=== PATIENT | male | born 1955 | race Caucasian/White ===

== ENCOUNTER 2020-05-21 12:26 | Inpatient (IN) | payer OTHER, SELFPAY ==
[2020-05-20 11:14] VITALS: BMI 28.1
[2020-05-21 12:27] VITALS: BP 165/98; PULSE 88; RESP 18; TEMP 36.2; O2SAT 99; BMI 29.7
--- NOTE | 2020-05-21 12:50 | EKG12_ITS ---
Test Reason : ABD PAIN Blood Pressure : / mmHG Vent. Rate : 061 BPM Atrial Rate : 061 BPM P-R Int : 172 ms QRS Dur : 080 ms QT Int : 376 ms P-R-T Axes : 032 -24 024 degrees QTc Int : 378 ms Normal sinus rhythm Inferior infarct , age undetermined Abnormal ECG Confirmed by JADIEL JOYCE, CHARITY ([id number]), online content editor ELIZA AUGUSTIN ([id number]) on 05/25/2020 2:37:03 PM Referred By: URIAH Confirmed By:EDIS DUVALL MD
[2020-05-21 12:53] LABS: Absolute Lymphocyte Count 1.69 X10^3/uL (0.83-4.51); Basophil# 0.04 X10^3/uL; Basophil% 0.5 % (0-1); Eosinophil# 0.13 X10^3/uL; Eosinophils% 1.8 % (0-5); Hematocrit 50.6 % (40-54); Hemoglobin 16.6 g/dL (13.0-16.5); Lymphocyte # 1.69 X10^3/ul (4.0); Lymphocyte % 22.9 % (19-41); Mean Corp Hgb Conc 32.8 g/dL (32-36); Mean Corpuscular Hgb 29.2 pg (27.0-32.0); Mean Corpuscular Volume 89.1 fL (80-94); Mean Platelet Vol. 9.9 fl (6.2-12.0); Monocyte# 0.53 X10^3/uL; Monocyte% 7.2 % (0-10); NRBC Flagged by Analyzer 0 % (0-5); Neutrophil # 4.95 X10^3/uL (2.7-7.7); Neutrophil % 67.2 % (47-70); Platelet Count 300 K/mm3 (150-450); RBC Distribution Width CV 12.9 % (11.6-14.6); RBC Distribution Width SD 42.1 fl (35.1-43.9); Red Blood Count 5.68 M/mm3 (4.6-6.2); White Blood Count 7.4 K/mm3 (4.4-11.0)
[2020-05-21 13:05] LABS: Anion Gap 7 (5-15); BUN 12 mg/dL (7-18); BUN/Creat Ratio 12.6 RATIO (10-20); Calcium,Total 9.2 mg/dL (8.5-10.1); Chloride 108 mmol/L (98-107); Creatinine, Serum 0.95 mg/dL (0.70-1.30); EST Glomerular Filtration Rate 85 mL/min (>60); Est Glom Filt Rate - Afr Amer 102 mL/min (>60); Estimated Creatinine Clearance 63.22 ml/min; Glucose 98 mg/dL (74-106); Potassium 4.1 mmol/L (3.5-5.1); Sodium Level 140 mmol/L (136-145)
[2020-05-21 13:35] LABS: AST(SGOT) 23 U/L (15-37); Alanine Aminotransfer ALT/SGPT 47 U/L (16-61); Albumin, Serum 3.9 g/dL (3.2-5.0); Alkaline Phosphatase 78 U/L (45-117); Globulin 3.7 g/dL (2.2-4.2); Protein, Total 7.6 g/dL (6.4-8.2)
[2020-05-21 13:41] LABS: Lipase 70 U/L (73-393)
[2020-05-21] MEDS: 0.9% Normal Saline 1,000 ML 1000 ML IV (14:53)
[2020-05-21] MEDS: Morphine 4 MG/ML Syringe IV (14:54)
[2020-05-21] MEDS: Ondansetron 4 MG/2 ML Vial IV (14:54)
--- NOTE | 2020-05-21 15:05 | CT_ITS ---
STUDY: CT ABDOMEN AND PELVIS WITH CONTRAST REASON FOR EXAM: Male, 65 years old. BELCHING X 1 WEEK WITH UPPER ABDOMINAL PAIN. NAUSEA RADIATION DOSAGE (If Supplied By Facility): CTDIvol = ( 14.76 ) mGy, DLP = ( 849.71 ) mGycm TECHNIQUE: Transaxial images were obtained from the dome of the diaphragm to the symphysis pubis without oral contrast. IV 100mL Isovue-300 was administered. Sagittal and coronal images were reconstructed. Individualized dose optimization techniques were used for this CT. COMPARISON: None. FINDINGS: Minimal degree of bibasilar atelectasis. The visualized portions of the heart are within normal limits. There is decreased attenuation of the liver consistent with steatosis. Normal gallbladder and extrahepatic biliary system. Normal spleen. Normal pancreas. Normal bilateral adrenal glands. Normal right kidney. Normal left kidney. There is a small hiatal hernia. There are dilated loops of the distal small intestine with a non-distended colon consistent with a small bowel obstruction. This is caused by inflammatory mass in the region of the cecum. The cecum is high riding with a retrocecal appendix. The appendix is distended. A small amount of fluid is seen in the right paracolic region. There are scattered colonic diverticula consistent with diverticulosis. The appendix is visualized and appears normal. Normal abdominal aorta. Normal inferior vena cava. Normal retroperitoneum. Normal urinary bladder. Normal abdominal wall. Normal osseous structures. CT/Abdomen/Pelvis W IV Cont ONLY IMPRESSION: Distal small bowel dilatation due to a inflammatory mass lesion in the region of the terminal ileum/cecum with the a dilated retroareolar cecal appendix. A mucocele should be ruled out. Electronically Signed: Ulises Reyes, at 15:45 EDT , Service support ,
--- NOTE | 2020-05-21 16:04 | ED.DCSUM_ITS ---
- ER Visit Summary Date of Service: 05/21/20 Chief Complaint: Abdominal pain History of Present Illness: The patient is a 65 M with no primary care physician. He reports his abdominal pain began 2 weeks ago. States initially just felt gassy and was belching all the time. States that he has had intermittent pain that he describes it as a spasm that is 9 out of 10 at worst and to a 10 currently. Is worsened by movement relieved by remaining still. He is been nausea and vomited once today. No blood in his emesis. No diarrhea. Last bowel was yesterday. It was dark after Pepto-Bismol. However, he denies any blood in his stools or black tarry diarrhea. Patient denies any fever or chills. He denies any dysuria or frequency. He reports he had endoscopy a long time ago. He had a colonoscopy approximately 10 years ago. Physical Examination: Vitals: Stable. Afebrile. General: Well-nourished and well-developed. Head: Normocephalic atraumatic. Neck: Supple, no lymphadenopathy. No JVD. Nontender. Cardiovascular: Regular rate and rhythm. No murmurs. Respiratory: No respiratory distress. Clear to auscultation bilaterally. Abdominal: Soft, moderate epigastric and right upper quadrant tenderness to palpation, nondistended, normal bowel sounds. No guarding, rebound, or peritoneal signs. Back: Nontender. Extremities: Nontender, no edema. Skin: Normal color, no rash. Neurologic: Alert and oriented ?3. Cranial nerves II through XII are intact. Normal strength and sensation. Psych: Normal affect. Test Results: CBC shows a hemoglobin of 16.6. Chem-7 shows a chloride of 108. LFTs are normal. Lipase 70. Troponin is negative. EKG is sinus at 61 with no acute changes. Clinical Impression(s) from Imaging Studies Abdomen/Pelvis CT 05/21/20 15:05 IMPRESSION: Distal small bowel dilatation due to a inflammatory mass lesion in the region of the terminal ileum/cecum with the a dilated retroareolar cecal appendix. A mucocele should be ruled out. Electronically Signed: Ulises Reyes, at 15:45 EDT , Service support , Emergency Department Course and Treatment: Patient was treated morphine and Zofran IV. He is resting comfortably. Treatment Plan: Patient was discussed with Dr. Shipman who is been to the emergency department reviewed the CT. 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 He will admit him to the hospital for further evaluation and treatment. Disposition: Admitted in improved condition. Impression: 1. Small bowel obstruction. 2. Cecal mass. This note was generated with [employer] dictation software. It may contain incorrect words, spelling, and punctuation that were not noted in review of the chart prior to signing ED Disposition - Plan for ED Patient: Referrals: Care Physician,No Primary [Primary Care Provider] -
[2020-05-21 16:36] VITALS: BMI 29.7
--- NOTE | 2020-05-21 16:58 | NURSING ---
MED SURG SHAMA DOUGLAS
[2020-05-21 17:09] VITALS: BP 145/79; PULSE 91; RESP 16; TEMP 36.7; O2SAT 99
--- NOTE | 2020-05-21 17:15 | PCM.HP.STD ---
Problem List (1) Colonic thickening Status: Acute History of Present Illness Date of Admission: 05/21/20 The patient is a 65 year old M who says that he has been having mounting abdominal pain for the last week. He says over the course of the week it is been escalating. He said he had a normal bowel movement yesterday. He did have some vomiting today. He denies any fevers or chills. He denies any diarrhea. Past Medical History Allergies Penicillins Allergy (Verified 05/21/20 12:30) unknown Home Medications: Ambulatory Orders Medication Instructions Recorded Famotidine 20 mg PO DAILY 05/21/20 Surgical History: no surgical history Smoking Status: Never smoker Tobacco Use: Chew - *Family History Maternal History Items: No pertinent history Review of Systems Constitutional: Denies: Anorexia, Fever Eyes: Denies: Blurred vision HEENT: Denies: Difficulty Hearing, Difficulty Swallowing Respiratory: Denies: Cough Gastrointestinal: Reports: Abdominal Pain, Nausea, Vomiting. Denies: Constipation, Diarrhea, Hematemesis, Hematochezia Genitourinary: Denies: Retention Musculoskeletal: Denies: Joint stiffness Neurological: Denies: Tingling Hematologic/ Lymphatic: Denies: Anemia VTE Information - Inpt Only VTE Present on Admission: No VTE Mechan Device Prophylaxis: SCD's Patient Problems: Active and Suspected Problems (Last Reviewed 05/20/20 @ 11:15 by Jayda Jo) Colonic thickening (Acute) - Physical Exam Vitals/I&O's: Vital Signs Temp Pulse Resp BP Pulse Ox 98.1 F 91 16 145/79 H 99 05/21/20 17:09 05/21/20 17:09 05/21/20 17:09 05/21/20 17:09 05/21/20 17:09 Oxygen Delivery Method Room Air Weight: 167 lb 8.821 oz Body Mass Index (BMI) 29.7 General: Alert, Oriented x3 Neck: No JVD Lungs: Normal air movement Cardiovascular: Regular rate, Regular Rhythm Abdomen: Soft, Non-Distended, Tender - Tender diffusely, worse in the right upper quadrant. No guarding or rebound Musculoskeletal: No Muscle Wasting Neurological: Cranial nerves II-XII grossly intact Psych/Mental Status: Normal Affect Laboratory Results 05/21/20 12:40: WBC 7.4, RBC 5.68, Hgb 16.6 H, Hct 50.6, MCV 89.1, MCH 29.2, MCHC 32.8, RDW Std Deviation 42.1, RDW Coeff of Gregory 12.9, Plt Count 300, MPV 9.9, Immature Gran % (Auto) 0.400, Neut % (Auto) 67.2, Lymph % (Auto) 22.9, [place] % (Auto) 7.2, Eos % (Auto) 1.8, Baso % (Auto) 0.5, Absolute Neuts (auto) 5.0, Absolute Lymphs (auto) 1.69, Nucleated RBC % 0 05/21/20 12:40: Sodium 140, Potassium 4.1, Chloride 108 H, Carbon Dioxide 25.0, Anion Gap 7, BUN 12, Creatinine 0.95, Estim Creat Clear Calc 63.22, Est GFR (MDRD) Af Amer 102, Est GFR (MDRD) Non-Af 85, BUN/Creatinine Ratio 12.6, Glucose 98, Calcium 9.2 05/21/20 12:40: Total Bilirubin 0.80, Direct Bilirubin 0.20, AST 23, ALT 47, Alkaline Phosphatase 78, Total Protein 7.6, Albumin 3.9, Globulin 3.7 05/21/20 12:40: Troponin I < 0.015, Lipase 70 L Current Medications Lidocaine HCl (Xylocaine 4% Sdv) 2 ml INHALATION X1 ONE Stop: 05/21/20 17:05 Oxymetazoline HCl (Afrin (Bkc)) 2 spray NASAL X1 ONE Stop: 05/21/20 17:05 Sodium Chloride () 10 - 40 ml IV UD PRN PRN Reason: SALINE FLUSH Assessment/Plan All Active Problems (Last Reviewed 05/20/20 @ 11:15 by Jayda Jo) Colonic thickening (Acute) Ventral hernia (Acute) Belching (Acute) 65-year-old male with possible cecal bascule 1. The patient describes pain that has been worsening over the course of the last week. He describes some nausea vomiting today. His pain has slowly been accelerating. I reviewed his CT scan findings with him. His white count is completely normal with no left shift and he is not having any guarding or rebound. The CT upon my review appears that the cecum is folded behind the hepatic flexure. The appendix appears to be lying in between the hepatic flexure and the cecum. The patient has never had any surgeries in the past. He denies any other issues and his last colonoscopy was approximately 10 years ago. He has not had any blood in his stool. At this point I do not believe he has a surgical emergency as his abdomen is soft but tender with no guarding and his white count is normal his vital signs are all stable. I will plan on surgical exploration with laparoscopy tomorrow morning. I will start him on IV fluids and keep him n.p.o. through the night. If anything worsens through the night including his vital signs or physical exam I will take him to surgery emergently. 2. I discussed surgery with the patient in detail. I discussed performing exploratory laparoscopy and examining the colon and appendix and if necessary performing a right hemicolectomy. I discussed the risks including but not limited to bleeding, infection, injury to surrounding organs such as the small bowel, liver, kidney or ureters, transverse colon. The patient understands the risks and is willing to proceed. I will have an NG tube placed in the emergency room to decompress the small bowel as much as possible and make laparoscopy easier tomorrow morning. Mohinder Shipman MD Pager: [facility] [address] [place] [address], [address] [place] [address] Office:
[2020-05-21 17:24] VITALS: BMI 29.2
[2020-05-21 17:30] VITALS: BP 147/97; PULSE 58; RESP 16; TEMP 36.9; O2SAT 99
[2020-05-21] MEDS: 0.9% Normal Saline 1,000 ML 125 ML IV (17:50)
[2020-05-21] MEDS: Morphine 2 MG/ML Syringe IV (17:52)
[2020-05-21] MEDS: Lidocaine Jelly 2% 20 ML Syringe (URO-JET) 20 APPLIC TOPICAL (19:02)
--- NOTE | 2020-05-21 19:18 | RAD_ITS ---
STUDY: X-RAY - ABDOMEN/PELVIS REASON FOR EXAM: Male, 65 years old. NG tube placement. TECHNIQUE: A single AP view of the lower chest and upper abdomen was performed. COMPARISON: CT of the abdomen and pelvis, 05/21/2020. FINDINGS: Normal visualized lung bases. There is no NG tube with its tip in the proximal stomach. There is an unremarkable bowel gas pattern. There is no free air. There is no demonstrated free abdominal air. The visualized liver, spleen and kidneys are grossly normal in size and morphology. Normal soft tissue structures. Normal visualized osseous structures. RAD/Abdomen Single View (Portable) IMPRESSION: NG tube with its tip overlying the gastric air bubble. Electronically Signed: Shan Villegas DO at 20:13 EDT Tel [phone], Service support ,
[2020-05-21 20:07] VITALS: BP 139/83; PULSE 75; RESP 16; TEMP 37.2; O2SAT 94
[2020-05-21 23:45] VITALS: BP 140/86; PULSE 68; RESP 18; TEMP 36.7; O2SAT 96
[2020-05-22] VITALS (12 sets, daily range): BP systolic 133–167; BP diastolic 85–97; PULSE 62–94; RESP 16–18; TEMP 36.3–37.4; O2SAT 93–97; BMI 29.2; BMI 29.7
--- NOTE | 2020-05-22 | COL._PTH ---
PATIENT: ATUL ALBERT LOC: MS3 U#:[id number] AGE/SX: 65/M ROOM: MS308 RE05/21/[address]: Dr. 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 See cancer checklist. AM:jayy 05/26/20 COMMENT COLON CANCER SUMMARY Procedure: Right hemicolectomy Tumor site: Cecum Tumor size: 3 x 3 x 1 cm Macroscopic tumor perforation: Not identified Histologic type: Adenocarcinoma with neuroendocrine features Histologic grade: G3 (moderate to poorly differentiated) Tumor extension: Tumor invades into subserosal fat. Margins: All margins are uninvolved by invasive carcinoma, high grade dysplasia/carcinoma in situ and adenoma. Margins examined: Proximal, distal and serosal. No tumor deposits are noted <1 mm from the visceral serosal surface. Treatment effect: Unknown Lymphvascular invasion: Present Perineural invasion: Present Tumor deposits: Single tumor deposit identified (5 mm in greatest dimension). Associated lesion: Tubular adenoma. Regional lymph nodes: 9 of 20 lymph nodes positive for metastatic carcinoma. Ancillary studies: See microsatellite instability study by IHC ([id number]) for complete details. Negative (no loss of mismatch protein; no microsatellite instability detected). Additional pathologic findings: None PATHOLOGIC STAGE: T3 N2b Mx The above summary is in compliance with [employer] (CAP) Cancer Protocols Checklist and [place] Joint Committee on Cancer (AJCC), Staging Manual, 8th Ed. Note: The adenocarcinoma involves portions of the ileocecal valve and proximal portion of the appendiceal lumen. MICROSCOPIC DESCRIPTION Slides are reviewed. GROSS DESCRIPTION Received in fixative is one container labeled with the patient's name and designated right hemicolon. The specimen consists of a 20 cm segment of large bowel with attached 17 cm segment of small bowel and attached 7 cm length of appendix that has a diameter of 0.7 cm. Located within the cecum and surrounding the orifice of the appendix, is a fungating odonnell-white mass measuring 3 x 3 x 1 cm. Serial sections of the mass reveal extension into the subserosal fatty tissue. The serosal surface in the area of the mass is inked in black ink. The attached fibrofatty tissue contains a number of grossly unremarkable nodules resembling lymph nodes. The remainder of large and small bowel mucosa is unremarkable. Industrial Ecologist sections are submitted as follows: 1 - mucosal margins of excision, 2 - ileocecal valve, 3?- appendix, 4 - uninvolved large and small bowel, 5-8 - tumor with #8 representing tumor in relationship to appendiceal orifice, 9-12 - multiple lymph nodes in each cassette. / AM:jayy 05/25/20 TC:0 CPT: 75069 ADDENDUM ADDENDUM ADDENDUM ADDENDUM ADDENDUM ADDENDUM ADDENDUM ADDENDUM ADDENDUM ADDENDUM ADDENDUM ADDENDUM 06/16/2020 11:51 ADDENDUM 06/16/2020 11:51 ADDENDUM 06/16/2020 11:51 ADDENDUM 06/16/2020 11:51 ADDENDUM 06/16/2020 11:51 This addendum is added to incorporate an outside pathology consultation report. The case was examined at [facility] (#[id number]) and the following diagnosis was rendered. Right colon, hemicolectomy: - Moderate to poorly differentiated adenocarcinoma, arising in cecum and extending into pericolorectal tissue. - Metastatic adenocarcinoma in eight lymph nodes (04/09). Please see complete above mentioned consultation report in EMR
--- NOTE | 2020-05-22 | IMM_PTH ---
PATIENT: ATUL ALBERT LOC: MS3 U#:[id number] AGE/SX: 65/M ROOM: MS308 RE05/21/[address]: Dr. Mohinder Shipman MD : 1955 BED: 1 DIS: 05/28/2020 SPEC #: [id number] RECD: 05/26/20 14:00 STATUS: MAEVE REQ #: [id number] GLORIA: 05/22/20 00:[address]: Mohinder Shipman DEPT: IMMUNOHISTOCHEMISTRY RECD BY: Mariah Rocha ENTERED: 05/26/20 14:02 SP TYPE: IMMUNO OTHR DR: Dr. Josef Cleary MD No Primary Care Phys Tissues: Right colon Procedures: Synapto (add) MSH2 (add) MLH-1 (add) MSH6 (add) Anti-PMS2 (add) GRANT-2 (initial) CD31 (add) CD56 (add) CHROMO (add) KI-67 (add) P53 (add) FACTOR VIII (add) CDX2 (add) NSE (add) PHYSICIAN & [place] [phone] SPECIMEN INFORMATION: Tissue Source: Right hemicolon Clinical Info: Cecal mass Specimen Number: [id number] #[id number] CPT code: 73227, 54291 x13 METHODOLOGY: Deparaffinized sections of prefer/formalin-fixed tissue or PAP/DQ stained slides are incubated with monoclonal/polyclonal antibodies/oligonucleotide probes. Localization is made via biotin free immunoperoxidase method. Appropriate controls are performed and reacted as expected. Results on target cell population are indicated in the following table: RESULTS: ANTIBODY / CLONE RESULT Block 7 CD31 (CALEB/70A) positive Factor VIII (R Ag) positive CD56 (123C3.D5) positive Chromo (LK2H10) negative Synapto (polyclonal) positive NSE Neuron Specific Enolase positive Ki-67 (30-9) positive, 85% P53 (DO-7) positive, 2% dim GRANT-2 (SP21) positive CDX2 (ALK5047X) positive MLH-1 (M1) positive MSH2 (25D12) positive MSH6 (44) positive PMS2 (KHQ4457) positive These tests were developed and their performance characteristics determined by [facility]. They may not have been cleared or approved by the U.S. Food and Drug Administration. The FDA has determined that such clearance or approval is not necessary. The above immunohistochemical/dualISH markers are ordered and reviewed by the Pathologist. 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 Result of Microsatellite Instability Study: Negative (no loss of mismatch protein; no microsatellite instability detected). See comment. AM:jayy 05/27/20 AM:jayy 06/04/20 Comment: Angiolymphatic invasion noted.
--- NOTE | 2020-05-22 | IMM_PTH ---
PATIENT: ATUL ALBERT LOC: MS3 U#:[id number] AGE/SX: 65/M ROOM: MS308 RE05/21/[address]: Dr. Mohinder Shipman MD : 1955 BED: 1 DIS: 05/28/2020 SPEC #: [id number] RECD: 05/26/20 14:00 STATUS: MAEVE REQ #: [id number] GLORIA: 05/22/20 00:[address]: Mohinder Shipman DEPT: IMMUNOHISTOCHEMISTRY RECD BY: Mariah Rocha ENTERED: 05/26/20 14:02 SP TYPE: IMMUNO OTHR DR: Dr. Josef Cleary MD No Primary Care Phys Tissues: Right colon Procedures: Synapto (add) MSH2 (add) MLH-1 (add) MSH6 (add) Anti-PMS2 (add) GRANT-2 (initial) CD31 (add) CD56 (add) CHROMO (add) KI-67 (add) P53 (add) FACTOR VIII (add) CDX2 (add) NSE (add) PHYSICIAN & [place] [phone] SPECIMEN INFORMATION: Tissue Source: Right hemicolon Clinical Info: Cecal mass Specimen Number: [id number] #[id number] CPT code: 03026, 58594 x13 METHODOLOGY: Deparaffinized sections of prefer/formalin-fixed tissue or PAP/DQ stained slides are incubated with monoclonal/polyclonal antibodies/oligonucleotide probes. Localization is made via biotin free immunoperoxidase method. Appropriate controls are performed and reacted as expected. Results on target cell population are indicated in the following table: RESULTS: ANTIBODY / CLONE RESULT Block 7 CD31 (CALEB/70A) positive Factor VIII (R Ag) positive CD56 (123C3.D5) positive Chromo (LK2H10) negative Synapto (polyclonal) positive NSE Neuron Specific Enolase positive Ki-67 (30-9) positive, 85% P53 (DO-7) positive, 2% dim GRANT-2 (SP21) positive CDX2 ([id number]) positive MLH-1 (M1) positive MSH2 (25D12) positive MSH6 (44) positive PMS2 (XFX1105) positive These tests were developed and their performance characteristics determined by [facility]. They may not have been cleared or approved by the U.S. Food and Drug Administration. The FDA has determined that such clearance or approval is not necessary. The above immunohistochemical/dualISH markers are ordered and reviewed by the Pathologist. 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 Result of Microsatellite Instability Study: Negative (no loss of mismatch protein; no microsatellite instability detected). AM:jayy 05/27/20
[2020-05-22] MEDS: Morphine 2 MG/ML Syringe IV ×4 (00:35→19:18)
[2020-05-22] MEDS: 0.9% Normal Saline 1,000 ML 125 ML IV ×3 (00:36→19:18)
[2020-05-22 06:07] LABS: Absolute Lymphocyte Count 1.31 X10^3/uL (0.83-4.51); Absolute Neutrophil Count 3.7 X10^3/uL (2.0-7.7); Basophil# 0.02 X10^3/uL; Basophil% 0.4 % (0-1); Eosinophil# 0.08 X10^3/uL; Eosinophils% 1.4 % (0-5); Hematocrit 46.2 % (40-54); Hemoglobin 14.6 g/dL (13.0-16.5); Lymphocyte # 1.31 X10^3/ul (4.0); Lymphocyte % 23.1 % (19-41); Mean Corp Hgb Conc 31.6 g/dL (32-36); Mean Corpuscular Volume 91.8 fL (80-94); Mean Platelet Vol. 9.9 fl (6.2-12.0); Monocyte# 0.51 X10^3/uL; NRBC Flagged by Analyzer 0 % (0-5); Neutrophil # 3.74 X10^3/uL (2.7-7.7); Neutrophil % 65.7 % (47-70); Platelet Count 259 K/mm3 (150-450); RBC Distribution Width CV 13.1 % (11.6-14.6); RBC Distribution Width SD 44.2 fl (35.1-43.9); Red Blood Count 5.03 M/mm3 (4.6-6.2); White Blood Count 5.7 K/mm3 (4.4-11.0)
[2020-05-22 06:41] LABS: Anion Gap 6 (5-15); BUN 12 mg/dL (7-18); BUN/Creat Ratio 15.2 RATIO (10-20); Chloride 113 mmol/L (98-107); Creatinine, Serum 0.79 mg/dL (0.70-1.30); EST Glomerular Filtration Rate 105 mL/min (>60); Est Glom Filt Rate - Afr Amer 127 mL/min (>60); Estimated Creatinine Clearance 76.03 ml/min; Glucose 91 mg/dL (74-106); Potassium 3.8 mmol/L (3.5-5.1); Sodium Level 142 mmol/L (136-145)
--- NOTE | 2020-05-22 07:41 | PN.SURG_ITS ---
Patient Problems: Active and Suspected Problems (Last Reviewed 05/20/20 @ 11:15 by Jayda Jo) Colonic thickening (Acute) Subjective: Patient reported in some improvement after the NG was placed. He is still having some mild pain in the right upper quadrant. - Physical Exam Vitals/I&O's: Vital Signs Temp Pulse Resp BP Pulse Ox 98.1 F 62 18 140/85 H 96 05/22/20 07:34 05/22/20 07:34 05/22/20 07:34 05/22/20 07:34 05/22/20 07:34 Oxygen Delivery Method Room Air Weight: 165 lb 1.6 oz Body Mass Index (BMI) 29.2 Intake and Output for Last 24 Hours 05/20/20 05/21/20 05/22/20 23:59 23:59 23:59 Intake Total 1120 / 1120 905.83 / 905.83 Output Total 225 / 225 450 / 450 Balance 895 / 895 455.83 / 455.83 General: Alert, Oriented x3 Lungs: Normal air movement Cardiovascular: Regular rate, Regular Rhythm Abdomen: Soft, Non-Distended, Tender - Tender in right upper quadrant no guarding or rebound Laboratory Results 05/21/20 12:40: WBC 7.4, RBC 5.68, Hgb 16.6 H, Hct 50.6, MCV 89.1, MCH 29.2, MCHC 32.8, RDW Std Deviation 42.1, RDW Coeff of Gregory 12.9, Plt Count 300, MPV 9.9, Immature Gran % (Auto) 0.400, Neut % (Auto) 67.2, Lymph % (Auto) 22.9, [place] % (Auto) 7.2, Eos % (Auto) 1.8, Baso % (Auto) 0.5, Absolute Neuts (auto) 5.0, Absolute Lymphs (auto) 1.69, Nucleated RBC % 0 05/21/20 12:40: Sodium 140, Potassium 4.1, Chloride 108 H, Carbon Dioxide 25.0, Anion Gap 7, BUN 12, Creatinine 0.95, Estim Creat Clear Calc 63.22, Est GFR (MDRD) Af Amer 102, Est GFR (MDRD) Non-Af 85, BUN/Creatinine Ratio 12.6, Glucose 98, Calcium 9.2 05/21/20 12:40: Total Bilirubin 0.80, Direct Bilirubin 0.20, AST 23, ALT 47, Alkaline Phosphatase 78, Total Protein 7.6, Albumin 3.9, Globulin 3.7 05/21/20 12:40: Troponin I < 0.015, Lipase 70 L 05/22/20 05:45: WBC 5.7, RBC 5.03, Hgb 14.6, Hct 46.2, MCV 91.8, MCH 29.0, MCHC 31.6 L, RDW Std Deviation 44.2 H, RDW Coeff of Gregory 13.1, Plt Count 259, MPV 9.9, Immature Gran % (Auto) 0.400, Neut % (Auto) 65.7, Lymph % (Auto) 23.1, [place] % (Auto) 9.0, Eos % (Auto) 1.4, Baso % (Auto) 0.4, Absolute Neuts (auto) 3.7, Absolute Lymphs (auto) 1.31, Nucleated RBC % 0 05/22/20 05:45: Sodium 142, Potassium 3.8, Chloride 113 H, Carbon Dioxide 23.0, Anion Gap 6, BUN 12, Creatinine 0.79, Estim Creat Clear Calc 76.03, Est GFR (MDRD) Af Amer 127, Est GFR (MDRD) Non-Af 105, BUN/Creatinine Ratio 15.2, Glucose 91, Calcium 8.0 L Current Medications Sodium Chloride () 1,000 mls @ 125 mls/hr IV .Q8H ROSELIA Last Admin: 05/22/20 00:36 Dose: 125 mls/hr Documented by: Clindamycin Phosphate 900 mg/ (Dextrose) 106 mls @ 150 mls/hr IV PREOP ONE Stop: 05/22/20 07:42 Morphine Sulfate () 2 - 4 mg IV Q2H PRN PRN PRN Reason: Pain Score 4-10/10 Last Admin: 05/22/20 00:35 Dose: 2 mg Documented by: Morphine Sulfate () 2 - 4 mg IV Q2H PRN PRN PRN Reason: Pain Score 4-10/10 Ondansetron HCl (Zofran) 4 mg IV Q6H PRN PRN PRN Reason: NAUSEA Sodium Chloride () 10 - 40 ml IV UD PRN PRN Reason: SALINE FLUSH Medical Necessity - Tobacco Use Smoking Status: Never smoker Tobacco Use: Chew Assessment/Plan All Active Problems (Last Reviewed 05/20/20 @ 11:15 by Jayda Jo) Colonic thickening (Acute) Ventral hernia (Acute) Belching (Acute) 65-year-old male with possible cecal bascule 1. I discussed surgery with him once more today. Given the fact that his white count is still normal I believe he is not having ischemic bowel but I do believe once we start to feed him he may have nausea and vomiting and continue to be obstructed. I recommend exploratory laparoscopy. If there is any inflammation or signs of necrosis or signs of a floppy cecum I would recommend ileocecectomy versus right hemicolectomy. I discussed this with him in detail. Mohinder Shipman MD Pager: [facility] [address] [place] [address], [address] [place] [address] Office:
--- NOTE | 2020-05-22 09:50 | NURSING ---
LATE ENTRY - PT TO OR VIA [facility] @ [phone]
[2020-05-22] MEDS: Lactated Ringers 1,000 ML 100 ML IV (12:11)
--- NOTE | 2020-05-22 13:03 | SUR.PHASEI ---
pt ready for transport to [facility] finished in PACU, when transport here for pt he reached up and pulled NG tube from nose. Dr mazariegos at bedside.
--- NOTE | 2020-05-22 13:25 | PCM.PN.BLA ---
Progress Note EGD was performed at the bedside. There was 750 cc of dark blood in the stomach upon entry of the stomach. The patient had a bleeding prepyloric ulcer. Injection of epinephrine around the site did not stop the bleeding. Placement of clips was technically very difficult due to the amount of bleeding. At the end of the procedure there was still bright red blood oozing from the ulcer. OG was replaced in the stomach. At this point I was unable to stop the bleed adequately. The patient will likely need transfer to a tertiary care center for IR intervention for hemostasis. I discussed this with the patient's . Mohinder Shipman MD Pager: [facility] [address] [place] [address], [address] [place] [address] Office: [facility] Vital Signs/Narrative: Vital Signs Temp Pulse Resp BP Pulse Ox 05/22/20 12:40 99.3 F H 75 18 149/88 H 96 05/22/20 12:30 74 18 141/86 H 94 05/22/20 12:15 73 18 167/97 H 93 05/22/20 12:01 72 16 157/88 H 93 05/22/20 11:37 97.4 F L 79 16 157/87 H 93
[2020-05-22] MEDS: 0.9% Saline Lock 10 ML Syringe IV ×3 (13:32→19:18)
--- NOTE | 2020-05-22 13:55 | CASEMGMT ---
RN CM Face to Face with patient for initial transition planning/care coordination assessment. RN CM introduced self and role at [facility]. Patient lying in bed, sleeping, at bedside. willing to participate in assessment and is able to answer all questions appropriately. Care providers, pharmacy, and demographics verified. wishes for patient to discharge home, denies need for home health at this time. states she has no further needs or concerns at this time. CM to follow for discharge planning needs that may arise. PCP: No PCP, List of local PCPs provided to . Specialists: none Preferred [facility]acy: [facility] Insurance: MMO Prescription Benefit: yes Living Will/HPOA: yes, Sarah Combs LNOK: Living Arrangements: Patient lives in a single story with 3 steps to enter the home. Patient is independent at home prior to hospitalization. Transportation: self, DME/HHC: states patient has no DME at home or previous HHC. Disposition Plan: Patient to discharge home with family support and follow-up plans in place. Palma EASTMAN, RN, CM
--- NOTE | 2020-05-22 15:46 | PCM.OPRPT ---
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 A Ma catheter was placed. The abdomen was prepped and draped in usual sterile fashion. A midline incision was made superior to the umbilicus and deepened to the fascia. The fascia was elevated and incised. Port was placed into the abdomen and it was insufflated 15 mmHg. Under direct visualization an epigastric 5 mm port and 5 mm right lower quadrant port were placed. The patient was placed in reverse Trendelenburg position. The right upper quadrant was inspected and there appeared to be a mass at the junction of the appendix and the cecum. There is also a twist of the cecum caused by a band. This is likely congenital. The hepatic flexure was taken down using Enseal and then the procedure was converted to open. A scalpel was used to make a midline incision containing both previous midline incisions. This was deepened to the fascia and the fascia was incised using electrocautery. The wound protector was placed into the abdomen. Using combination of blunt and Enseal dissection the lateral attachments to the hepatic flexure and the transverse colon were taken down. The cecum and transverse colon and terminal ileum were delivered through the incision. The terminal limb was divided with a 75 PRADIP stapler. The transverse colon was inspected and just proximal to the middle colic vessel an area of the transverse colon was selected and divided using the PRADIP stapler. Next the Enseal was used to take down the mesentery until the right colon pedicle was identified. The right colon pedicle was double suture-ligated using 0 silk suture. There was good hemostasis. The specimen was sent for pathology. Next the distal ileum as well as the transverse colon were stapled together using PRADIP stapler in a [id number] functional end-to-end fashion. A crotch suture was placed using 3-0 silk suture. Next Babcocks were used to close the enterostomy and a 60 GX stapler was placed and fired to close the enterostomy. This was reinforced using 3-0 silk suture. The mesenteric defect was closed in a running fashion using 3-0 Vicryl suture. The abdomen was irrigated and suctioned dry. The fascia was then reapproximated using a running #1 PDS suture from top to bottom meeting in the middle. The subcutaneous tissue was irrigated and suctioned dry. The skin was anesthetized and closed with interrupted 4-0 Monocryl sutures. Neck Steri-Strips and bandages were applied. Patient tolerated procedure well was brought back in stable condition. - Admit VTE Documentation VTE Mechan Device Prophylaxis: SCD's
[2020-05-22] MEDS: Morphine 4 MG/ML Syringe IV (21:39)
[2020-05-23] VITALS (8 sets, daily range): BP systolic 117–154; BP diastolic 68–89; PULSE 63–110; RESP 17–24; TEMP 36.3–37.3; O2SAT 93–98; BMI 29.7
[2020-05-23] MEDS: 0.9% Normal Saline 1,000 ML 125 ML IV (02:46)
[2020-05-23] MEDS: Morphine 4 MG/ML Syringe IV (04:12)
--- NOTE | 2020-05-23 06:22 | PN.SURG_ITS ---
Patient Problems: Active and Suspected Problems (Last Reviewed 05/20/20 @ 11:15 by Jayda Jo) Colonic thickening (Acute) Subjective: Patient notes upper abdominal soreness. He had some mild nausea last night. He has not had any flatus. He has been able to ambulate once. - Physical Exam Vitals/I&O's: Vital Signs Temp Pulse Resp BP Pulse Ox 98.2 F 89 24 H 154/89 H 93 05/23/20 03:57 05/23/20 03:57 05/23/20 03:57 05/23/20 03:57 05/23/20 03:57 Oxygen Flow Rate (L/min) 2 Oxygen Delivery Method Room Air Weight: 165 lb 1.6 oz Body Mass Index (BMI) 29.2 Intake and Output for Last 24 Hours 05/21/20 05/22/20 05/23/20 23:59 23:59 23:59 Intake Total 1120 / 1120 4115.58 / 4115.58 933.33 / 933.33 Output Total 225 / 225 650 / 650 275 / 275 Balance 895 / 895 3465.58 / 3465.58 658.33 / 658.33 General: Alert Lungs: Clear to auscultation, - - Mild splinting noted with effort at deep respiration Abdomen: Soft, Bowel Sounds Not Present, Distended, - - Dressings intact Laboratory Results 05/22/20 05:45: Sodium 142, Potassium 3.8, Chloride 113 H, Carbon Dioxide 23.0, Anion Gap 6, BUN 12, Creatinine 0.79, Estim Creat Clear Calc 76.03, Est GFR (MDRD) Af Amer 127, Est GFR (MDRD) Non-Af 105, BUN/Creatinine Ratio 15.2, Glucose 91, Calcium 8.0 L Current Medications Enoxaparin Sodium (Lovenox) 40 mg SC DAILY [facility] Sodium Chloride () 1,000 mls @ 125 mls/hr IV .Q8H [facility] Last Admin: 05/23/20 02:46 Dose: 125 mls/hr Documented by: Morphine Sulfate () 2 - 4 mg IV Q2H PRN PRN PRN Reason: Pain Score 4-10/10 Last Admin: 05/22/20 19:18 Dose: 2 mg Documented by: Morphine Sulfate () 2 - 4 mg IV Q2H PRN PRN PRN Reason: Pain Score 4-10/10 Last Admin: 05/23/20 04:12 Dose: 4 mg Documented by: Ondansetron HCl (Zofran) 4 mg IV Q6H PRN PRN PRN Reason: NAUSEA Sodium Chloride () 10 - 40 ml IV UD PRN PRN Reason: SALINE FLUSH Last Admin: 05/22/20 19:18 Dose: 10 ml Documented by: Medical Necessity - Tobacco Use Smoking Status: Never smoker Tobacco Use: Chew Assessment/Plan All Active Problems (Last Reviewed 05/20/20 @ 11:15 by Jayda Jo) Colonic thickening (Acute) Ventral hernia (Acute) Belching (Acute) Postoperative day 1. He has had some mild nausea and has not yet had flatus. He is reasonably quiet and slightly distended. I will keep him on sips and chips for the moment and I have encouraged ambulation. I will moderate IV fluids. I will recheck with the patient see if we can start clear liquids later today. Josef Cleary M.D., F.A.C.S.
[2020-05-23 07:24] LABS: Absolute Lymphocyte Count 0.85 X10^3/uL (0.83-4.51); Absolute Neutrophil Count 7.8 X10^3/uL (2.0-7.7); Basophil# 0.02 X10^3/uL; Basophil% 0.2 % (0-1); Eosinophil# 0.13 X10^3/uL; Eosinophils% 1.4 % (0-5); Hematocrit 45.1 % (40-54); Hemoglobin 14.7 g/dL (13.0-16.5); Lymphocyte # 0.85 X10^3/ul (4.0); Mean Corp Hgb Conc 32.6 g/dL (32-36); Mean Corpuscular Hgb 29.6 pg (27.0-32.0); Mean Corpuscular Volume 90.7 fL (80-94); Mean Platelet Vol. 9.9 fl (6.2-12.0); Monocyte# 0.62 X10^3/uL; Monocyte% 6.6 % (0-10); NRBC Flagged by Analyzer 0 % (0-5); Neutrophil # 7.77 X10^3/uL (2.7-7.7); Neutrophil % 82.6 % (47-70); POSITIVE MORPHOLOGY YES; Platelet Count 230 K/mm3 (150-450); RBC Distribution Width SD 43.5 fl (35.1-43.9); Red Blood Count 4.97 M/mm3 (4.6-6.2); White Blood Count 9.4 K/mm3 (4.4-11.0)
[2020-05-23 07:29] LABS: Differential Indicated SCAN CRITERIA MET
[2020-05-23] MEDS: Enoxaparin 40 MG/0.4 ML Syringe SC (08:30)
[2020-05-23] MEDS: oxyCODONE 5 MG Tablet PO (09:43)
[2020-05-23] MEDS: 0.9% Normal Saline 1,000 ML 70 ML IV (12:00)
[2020-05-23] MEDS: Morphine 2 MG/ML Syringe IV ×2 (12:00→20:51)
--- NOTE | 2020-05-23 21:28 | CON.PCM_ITS ---
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 Nurse reported that on routine check patient's apical pulse was irregular so patient was placed on telemetry. He was noted to have trigeminy. His heart rate was 110. Patient denies any other symptoms except a complaint of abdominal pressure; and feeling hot earlier on from high room temperature. He has not had a bowel movement or passed gas post surgery. However he has been burping. He denies any urinary symptoms. He denies any palpitations. He denies any history of irregular rhythm. Patient chews tobacco and he think that he may be withdrawing from tobacco. Past Medical History Medical History: Medical History (Last Updated 05/23/20 @ 22:[address] Jon Fields MD) Denies previous medical history (Acute) Allergies Penicillins Allergy (Verified 05/21/20 12:30) unknown Home Medications: Ambulatory Orders Medication Instructions Recorded Famotidine 20 mg PO DAILY 05/21/20 Surgical History: - - Right hemicolectomy Smoking Status: Current every day smoker Tobacco Use: Chew Alcohol: Occasional - *Family History Maternal History Items: Dementia, - - GERD Paternal History Items: Dementia Review of Systems Constitutional: Denies: Chills, Fever, Weight Change HEENT: Denies: Head Aches, Sinus Congestion, Sinus Drainage Cardiovascular: Denies: Chest Pain, Palpitations Respiratory: Denies: Cough, Shortness of breath at rest, Sputum production Gastrointestinal: Reports: Abdominal Pain. Denies: Nausea, Vomiting Genitourinary: Denies: Dysuria Musculoskeletal: Denies: Joint Pain, Joint Tenderness Skin: Denies: Rash, Wounds Neurological: Denies: Numbness, Tingling, Focal weakness Psychiatric: Denies: Anxiety, Depression, Homicidal Ideations, Suicidal Ideations Hematologic/ Lymphatic: Denies: Easy Bruising, Easy Bleeding Patient Problems: Active and Suspected Problems (Last Updated 05/23/20 @ 22:[address] Jon Fields MD) Colonic thickening (Acute) PVC (premature ventricular contraction) (Acute) Tachycardia (Acute) Low grade fever (Acute) S/P colectomy (Acute) Denies previous medical history (Acute) - Physical Exam Vitals/I&O's: Vital Signs Temp Pulse Resp BP Pulse Ox 99.2 F H 99 20 H 117/79 97 05/23/20 20:20 05/23/20 20:20 05/23/20 20:20 05/23/20 20:20 05/23/20 20:20 Oxygen Flow Rate (L/min) 2 Oxygen Delivery Method Room Air Weight: 74.888 kg Body Mass Index (BMI) 29.2 Intake and Output for Last 24 Hours 05/21/20 05/22/20 05/23/20 23:59 23:59 23:59 Intake Total 1120 / 1120 4115.58 / 4115.58 1983.33 / Output Total 225 / 225 650 / 650 1475 / 1475 Balance 895 / 895 3465.58 / 3465.58 508.33 / 508.33 General: Alert, Oriented x3, Cooperative HEENT: Atraumatic, PERRLA, EOMI, Normocephalic Neck: Supple, No JVD, Negative Carotid Bruits, Trachea Midline Lungs: Clear to auscultation, Normal air movement Cardiovascular: Regular rate, Normal S1, Normal S2, No murmurs, Tachycardic Abdomen: Bowel Sounds Present, Soft, Tender, - - Dressing on abdomen with dried blood. Extremities: No edema, Capillary Refill Less than 3 Seconds Skin: No rashes, No breakdown Musculoskeletal: No Tenderness to Palpation of Joints or Extremities Neurological: Cranial nerves II-XII grossly intact Psych/Mental Status: Normal Affect, Appropriate Laboratory Results 05/23/20 07:14: WBC 9.4, RBC 4.97, Hgb 14.7, Hct 45.1, MCV 90.7, MCH 29.6, MCHC 32.6, RDW Std Deviation 43.5, RDW Coeff of Gregory 13.0, Plt Count 230, MPV 9.9, Immature Gran % (Auto) 0.200, Neut % (Auto) 82.6 H, Lymph % (Auto) 9.0 L, [place] % (Auto) 6.6, Eos % (Auto) 1.4, Baso % (Auto) 0.2, Absolute Neuts (auto) 7.8 H, Absolute Lymphs (auto) 0.85, Nucleated RBC % 0 Current Medications Acetaminophen (Tylenol) 650 mg PO Q6H PRN PRN PRN Reason: Pain Score 1-10/10 Enoxaparin Sodium (Lovenox) 40 mg SC DAILY [facility] Last Admin: 05/23/20 08:30 Dose: 40 mg Documented by: Sodium Chloride () 1,000 mls @ 70 mls/hr IV .[id number] [facility] Last Admin: 05/23/20 12:00 Dose: 70 mls/hr Documented by: Morphine Sulfate () 2 - 4 mg IV Q2H PRN PRN PRN Reason: Pain Score 4-10/10 Last Admin: 05/23/20 20:51 Dose: 2 mg Documented by: Morphine Sulfate () 2 - 4 mg IV Q2H PRN PRN PRN Reason: Pain Score 4-10/10 Last Admin: 05/23/20 04:12 Dose: 4 mg Documented by: Ondansetron HCl (Zofran) 4 mg IV Q6H PRN PRN PRN Reason: NAUSEA Oxycodone HCl (Oxyir) 5 mg PO Q4H PRN PRN PRN Reason: Pain Score 6-10/10 Last Admin: 05/23/20 09:43 Dose: 5 mg Documented by: Sodium Chloride () 10 - 40 ml IV UD PRN PRN Reason: SALINE FLUSH Last Admin: 05/22/20 19:18 Dose: 10 ml Documented by: Assessment/Plan All Active Problems (Last Updated 05/23/20 @ 22:[address] 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 Tachycardia with trigeminy PVC. Patient denies history of dysrhythmia Review of labs showed a potassium of 3.8. Twenty (20) mEq of potassium chloride p.o. x1 ordered. Trend BMP. Check magnesium. Get 12-lead EKG. Check TSH BUN is normal and it does not appear that patient is dehydrated. Hyperchloremia Review of labs showed chloride: 113<-108. Change IV fluids from normal saline to lactated Ringer's. Trend BMP. Low-grade fever Likely postoperative Incentive spirometer ordered. 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 Management by primary, general surgery. Tobacco abuse Counseled Nicotine patch prescribed. Elevated blood pressure without diagnosis of hypertension. Of note his blood pressure has been elevated in the hospital stay. Continue to trend blood pressures at this time. DVT Prophylaxis Patient with SCD. Office Visits / Consults: [id number] IP Consult L2
--- NOTE | 2020-05-23 21:43 | EKG12_ITS ---
Test Reason : ARHYTHMIA Blood Pressure : / mmHG Vent. Rate : 102 BPM Atrial Rate : 102 BPM P-R Int : 156 ms QRS Dur : 072 ms QT Int : 332 ms P-R-T Axes : 039 -25 025 degrees QTc Int : 432 ms Sinus tachycardia with frequent Premature ventricular complexes Inferior infarct , age undetermined , cannot be excluded Abnormal ECG Confirmed by RANJIT JOYCE, ELIZABETH ([id number]), video editor ELIZA AUGUSTIN ([id number]) on 05/27/2020 10:20:55 AM Referred By: NICCI Confirmed By:ELIZABETH CHURCH MD
[2020-05-23 22:46] LABS: Thyroid Stim Hormone (TSH) 5.22 uIU/mL (0.358-3.74)
[2020-05-23] MEDS: Lactated Ringers 1,000 ML 70 ML IV (22:48)
--- NOTE | 2020-05-23 23:22 | NURSING ---
Called Sarah Combs the patients to inform her of the patients irregular heart beat. I notified her we notified the MD and consulted the hospitalist. She was also informed that we obtained a EKG and repeated labs. She stated that has no further questions and would like to be notified if there are any changes.
[2020-05-24] VITALS (16 sets, daily range): BP systolic 133–156; BP diastolic 68–88; PULSE 81–107; RESP 18–20; TEMP 36.4–37.1; O2SAT 97–99
[2020-05-24] MEDS: 0.9% Saline Lock 10 ML Syringe IV (03:04)
[2020-05-24] MEDS: Morphine 4 MG/ML Syringe IV (03:04)
--- NOTE | 2020-05-24 06:39 | PN.SURG_ITS ---
Patient Problems: Active and Suspected Problems (Last Updated 05/23/20 @ 22:[address] Jon Fields MD) Colonic thickening (Acute) PVC (premature ventricular contraction) (Acute) Tachycardia (Acute) Low grade fever (Acute) S/P colectomy (Acute) Denies previous medical history (Acute) Subjective: Report last evening of a slightly elevated heart rate at 110 bpm with trigeminy found on monitoring. I did ask the hospitalist to provide a consult and so far no acute findings. The patient has no specific complaints other than a slight acid the stomach. No nausea. No flatus. He is not complaining of any increased abdominal pain it is about the same. He has still been able to get up and walk and did a moderate amount of walking yesterday. - Physical Exam Vitals/I&O's: Vital Signs Temp Pulse Resp BP Pulse Ox 98.7 F 102 H 20 H 143/68 H 97 05/24/20 03:00 05/24/20 03:00 05/24/20 03:05 05/24/20 03:00 05/24/20 03:00 Oxygen Flow Rate (L/min) 2 Oxygen Delivery Method Room Air Weight: 165 lb 1.6 oz Body Mass Index (BMI) 29.2 Intake and Output for Last 24 Hours 05/22/20 05/23/20 05/24/20 23:59 23:59 23:59 Intake Total 4115.58 / 4115.58 2733.33 / 2733.33 Output Total 650 / 650 1925 / 1925 Balance 3465.58 / 3465.58 808.33 / 808.33 General: Alert, Oriented x3, Cooperative, No apparent distress Lungs: Clear to auscultation, Normal air movement Cardiovascular: - Abdomen: Soft, Non Tender, Hypoactive Bowel Sounds, Distended, - - Mild erythema at all incision sites but nontender Extremities: No Calf Tenderness Laboratory Results 05/23/20 07:14: WBC 9.4, RBC 4.97, Hgb 14.7, Hct 45.1, MCV 90.7, MCH 29.6, MCHC 32.6, RDW Std Deviation 43.5, RDW Coeff of Gregory 13.0, Plt Count 230, MPV 9.9, Immature Gran % (Auto) 0.200, Neut % (Auto) 82.6 H, Lymph % (Auto) 9.0 L, [place] % (Auto) 6.6, Eos % (Auto) 1.4, Baso % (Auto) 0.2, Absolute Neuts (auto) 7.8 H, Absolute Lymphs (auto) 0.85, Nucleated RBC % 0 05/23/20 21:40: Magnesium 2.0 05/23/20 21:40: TSH 5.22 H 05/24/20 05:04: WBC Pending, RBC Pending, Hgb Pending, Hct Pending, MCV Pending, MCH Pending, MCHC Pending, RDW Std Deviation Pending, RDW Coeff of Gregory Pending, Plt Count Pending, Neut % (Auto) Pending, Absolute Neuts (auto) Pending 05/24/20 05:04: Sodium Pending, Potassium Pending, Chloride Pending, Carbon Dioxide Pending, Anion Gap Pending, BUN Pending, Creatinine Pending, Est GFR (MDRD) Af Amer Pending, Est GFR (MDRD) Non-Af Pending, BUN/Creatinine Ratio Pending, Glucose Pending, Calcium Pending Current Medications Acetaminophen (Tylenol) 650 mg PO Q6H PRN PRN PRN Reason: Pain Score 1-10/10 Enoxaparin Sodium (Lovenox) 40 mg SC DAILY [facility] Last Admin: 05/23/20 08:30 Dose: 40 mg Documented by: Lactated Ringer's () 1,000 mls @ 70 mls/hr IV .[id number] [facility] Last Admin: 05/23/20 22:48 Dose: 70 mls/hr Documented by: Morphine Sulfate () 2 - 4 mg IV Q2H PRN PRN PRN Reason: Pain Score 4-10/10 Last Admin: 05/23/20 20:51 Dose: 2 mg Documented by: Morphine Sulfate () 2 - 4 mg IV Q2H PRN PRN PRN Reason: Pain Score 4-10/10 Last Admin: 05/24/20 03:04 Dose: 4 mg Documented by: Nicotine (Nicoderm Cq (Pbkc)) 21 mg TRANSDERM. DAILY [facility] Last Admin: 05/23/20 22:53 Dose: 21 mg Documented by: Ondansetron HCl (Zofran) 4 mg IV Q6H PRN PRN PRN Reason: NAUSEA Oxycodone HCl (Oxyir) 5 mg PO Q4H PRN PRN PRN Reason: Pain Score 6-10/10 Last Admin: 05/23/20 09:43 Dose: 5 mg Documented by: Sodium Chloride () 10 - 40 ml IV UD PRN PRN Reason: SALINE FLUSH Last Admin: 05/24/20 03:04 Dose: 10 ml Documented by: Medical Necessity - Tobacco Use Smoking Status: Current every day smoker Tobacco Use: Chew Assessment/Plan All Active Problems (Last Updated 05/23/20 @ 22:[address] Jon Fields MD) Belching (Acute) Ventral hernia (Acute) Colonic thickening (Acute) PVC (premature ventricular contraction) (Acute) Tachycardia (Acute) Low grade fever (Acute) S/P colectomy (Acute) Denies previous medical history (Acute) Patient does not appear to be any any distress. Has no specific complaints. His abdominal exam is improving with return of bowel sounds. I will initiate clear liquids and continue to moderate IV fluids. I would defer the cardiac issue to primary care and appreciate consultation. This does not appear to be affecting the patient at this time. A.m. laboratories still pending Josef Cleary M.D., F.A.C.S.
[2020-05-24 06:45] LABS: Absolute Neutrophil Count 6.9 X10^3/uL (2.0-7.7); Basophil# 0.03 X10^3/uL; Basophil% 0.4 % (0-1); Eosinophil# 0.02 X10^3/uL; Eosinophils% 0.2 % (0-5); Hematocrit 44.1 % (40-54); Lymphocyte % 8.4 % (19-41); Mean Corp Hgb Conc 31.7 g/dL (32-36); Mean Corpuscular Hgb 29.4 pg (27.0-32.0); Mean Corpuscular Volume 92.5 fL (80-94); Mean Platelet Vol. 10.8 fl (6.2-12.0); Monocyte# 0.61 X10^3/uL; Monocyte% 7.3 % (0-10); NRBC Flagged by Analyzer 0 % (0-5); Neutrophil # 6.92 X10^3/uL (2.7-7.7); Neutrophil % 83.5 % (47-70); Platelet Count 226 K/mm3 (150-450); RBC Distribution Width CV 13.2 % (11.6-14.6); RBC Distribution Width SD 45.2 fl (35.1-43.9); Red Blood Count 4.77 M/mm3 (4.6-6.2); White Blood Count 8.3 K/mm3 (4.4-11.0)
[2020-05-24 07:18] LABS: Anion Gap 7 (5-15); BUN 9 mg/dL (7-18); BUN/Creat Ratio 12.6 RATIO (10-20); Calcium,Total 8.4 mg/dL (8.5-10.1); Chloride 109 mmol/L (98-107); Creatinine, Serum 0.72 mg/dL (0.70-1.30); EST Glomerular Filtration Rate 117 mL/min (>60); Est Glom Filt Rate - Afr Amer 142 mL/min (>60); Estimated Creatinine Clearance 83.42 ml/min; Glucose 86 mg/dL (74-106); Potassium 3.8 mmol/L (3.5-5.1); Sodium Level 140 mmol/L (136-145)
[2020-05-24] MEDS: Famotidine 20 MG Tablet PO ×2 (07:21→21:08)
[2020-05-24 08:22] LABS: Free T3 1.7 pg/mL (2.18-3.98); T4 Free Direct 1.46 ng/dL (0.76-1.46)
[2020-05-24 08:55] LABS: Magnesium 2.2 mg/dL (1.6-2.6)
[2020-05-24] MEDS: Enoxaparin 40 MG/0.4 ML Syringe SC (09:48)
--- NOTE | 2020-05-24 10:57 | PN_ITS ---
Patient Problems: Active and Suspected Problems (Last Updated 05/23/20 @ 22:[address] Jon Fields MD) Colonic thickening (Acute) PVC (premature ventricular contraction) (Acute) Tachycardia (Acute) Low grade fever (Acute) S/P colectomy (Acute) Denies previous medical history (Acute) Subjective: Patient seen and examined. Hospitalist service was consulted to see patient o/a of tachycardia. He was admitted to the surgical service for resection of cecal mass. He has no complaints this morning. He denies any tachycardia, chest pain, dizziness, nausea or vomiting. Review of systems was otherwise negative. HR is down to 92 this morning. CBC is unremarkable. Potassium and magnesium are within normal limits. Vitals/I&O's: Vital Signs Temp Pulse Resp BP Pulse Ox 97.5 F L 92 20 H 155/69 H 99 05/24/20 09:00 05/24/20 09:40 05/24/20 09:40 05/24/20 09:00 05/24/20 09:40 Oxygen Flow Rate (L/min) 2 Oxygen Delivery Method Room Air Weight: 165 lb 1.6 oz Body Mass Index (BMI) 29.2 Intake and Output for Last 24 Hours 05/22/20 05/23/20 05/24/20 23:59 23:59 23:59 Intake Total 4115.58 / 4115.58 2733.33 / 2733.33 189.83 / 189.83 Output Total 650 / 650 1925 / 1925 700 / 700 Balance 3465.58 / 3465.58 808.33 / 808.33 -510.17 / -510.17 General: Alert, Oriented x3, Cooperative HEENT: Atraumatic, PERRLA, EOMI, Normocephalic Oral: Dry Mucosa Neck: Supple, No JVD, Negative Carotid Bruits Lungs: Clear to auscultation, Normal air movement, No rhonchi, No wheeze, No rales Cardiovascular: Irregular Rate - has bigeminy, with regular rate Abdomen: Bowel Sounds Present, Soft, Non Tender Extremities: No edema, Capillary Refill Less than 3 Seconds Skin: - - dressing over abdominal surgical site. Musculoskeletal: No Tenderness to Palpation of Joints or Extremities Lymphatic: No Cervical, Supraclavicular, or Inguinal Adenopathy Neurological: Cranial nerves II-XII grossly intact, Neuro grossly intact, Motor Exam 5/5 strength throughout Psych/Mental Status: Normal Affect, Appropriate, Alert and oriented to time, place, person, mood and affect Laboratory Results 05/23/20 21:40: Magnesium 2.0 05/23/20 21:40: TSH 5.22 H 05/24/20 05:04: WBC 8.3, RBC 4.77, Hgb 14.0, Hct 44.1, MCV 92.5, MCH 29.4, MCHC 31.7 L, RDW Std Deviation 45.2 H, RDW Coeff of Gregory 13.2, Plt Count 226, MPV 10.8, Immature Gran % (Auto) 0.200, Neut % (Auto) 83.5 H, Lymph % (Auto) 8.4 L, [place] % (Auto) 7.3, Eos % (Auto) 0.2, Baso % (Auto) 0.4, Absolute Neuts (auto) 6.9, Absolute Lymphs (auto) 0.70 L, Nucleated RBC % 0 05/24/20 05:04: Sodium 140, Potassium 3.8, Chloride 109 H, Carbon Dioxide 24.0, Anion Gap 7, BUN 9, Creatinine 0.72, Estim Creat Clear Calc 83.42, Est GFR (MDRD) Af Amer 142, Est GFR (MDRD) Non-Af 117, BUN/Creatinine Ratio 12.6, Glucose 86, Calcium 8.4 L 05/24/20 05:04: Free T4 1.46, Free T3 pg/dL 1.7 L 05/24/20 05:04: Magnesium 2.2 Diagnostic Data Abdomen/Pelvis CT 05/21/20 15:05 IMPRESSION: Distal small bowel dilatation due to a inflammatory mass lesion in the region of the terminal ileum/cecum with the a dilated retroareolar cecal appendix. A mucocele should be ruled out. Electronically Signed: Ulises Reyes, at 15:45 EDT , Service support , KUB X-Ray 05/21/20 19:18 IMPRESSION: NG tube with its tip overlying the gastric air bubble. Electronically Signed: Shan Villegas DO at 20:13 EDT Tel [phone], Service support , Current Medications Acetaminophen (Tylenol) 650 mg PO Q6H PRN PRN PRN Reason: Pain Score 1-10/10 Enoxaparin Sodium (Lovenox) 40 mg SC DAILY [facility] Last Admin: 05/24/20 09:48 Dose: 40 mg Documented by: Famotidine (Pepcid) 20 mg PO BID [facility] Last Admin: 05/24/20 07:21 Dose: 20 mg Documented by: Lactated Ringer's () 1,000 mls @ 30 mls/hr IV .[id number] [facility] Last Infusion: 05/24/20 00:05 Dose: 30 mls/hr Documented by: Morphine Sulfate () 2 - 4 mg IV Q2H PRN PRN PRN Reason: Pain Score 4-10/10 Last Admin: 05/23/20 20:51 Dose: 2 mg Documented by: Morphine Sulfate () 2 - 4 mg IV Q2H PRN PRN PRN Reason: Pain Score 4-10/10 Last Admin: 05/24/20 03:04 Dose: 4 mg Documented by: Nicotine (Nicoderm Cq (Pbkc)) 21 mg TRANSDERM. DAILY [facility] Last Admin: 05/24/20 09:47 Dose: 21 mg Documented by: Ondansetron HCl (Zofran) 4 mg IV Q6H PRN PRN PRN Reason: NAUSEA Oxycodone HCl (Oxyir) 5 mg PO Q4H PRN PRN PRN Reason: Pain Score 6-10/10 Last Admin: 05/23/20 09:43 Dose: 5 mg Documented by: Sodium Chloride () 10 - 40 ml IV UD PRN PRN Reason: SALINE FLUSH Last Admin: 05/24/20 03:04 Dose: 10 ml Documented by: STROKE Vital Signs/Narrative: Vital Signs Temp Pulse Resp BP Pulse Ox 05/24/20 09:40 92 20 H 99 05/24/20 09:00 97.5 F L 92 20 H 155/69 H 99 05/24/20 08:20 107 H Medical Necessity - Tobacco Use Smoking Status: Current every day smoker Tobacco Use: Chew Assessment/Plan All Active Problems (Last Updated 05/23/20 @ 22:[address] Jon Fields MD) Belching (Acute) Ventral hernia (Acute) Colonic thickening (Acute) PVC (premature ventricular contraction) (Acute) Tachycardia (Acute) Low grade fever (Acute) S/P colectomy (Acute) Denies previous medical history (Acute) # Tachycardia with PVCs * has no complaitns today. Tachycardia has improved, but he still has bigeminy * potassium and magnesium are WNL * TSH is elevated at 5.22, and free T4 is 1.46, with free T3 of 1.7; free T3 is low, indicative of T3 hypothyroidism. * to repeat thyroid function tests on outpatient basis. Will hold off on starting synthroid for now due to normal free T4 levels. * get 2D echo tomorrow * # Cecal mass s/p right hemicolectomy * management as per primary team, general surgery * pain management as per general surgery * incentive spirometry * # Nicotine dependence: on nicotine. # Elevated BP: * no diagnosis of hypertension. * BP has been in the 140s and 150s systolic. * will start on PO metoprolol 12.5mg bid. * IV hydralazine prn * #DVT prophylaxis; SCDs. Inpatient E&M: 03644 Subs Hosp L2
[2020-05-24] MEDS: Metoprolol Tartrate 25 MG Tablet 12.5 MG PO ×2 (11:55→21:08)
[2020-05-24] MEDS: oxyCODONE 5 MG Tablet PO ×2 (12:02→21:00)
--- NOTE | 2020-05-24 14:12 | NURSING ---
1311 EKG strip noted Trigeminy, strip placed in chart, charge nurse aware Vee Kilpatrick RN
[2020-05-24] MEDS: Lactated Ringers 1,000 ML 30 ML IV (20:59)
[2020-05-24] MEDS: Acetaminophen 325 MG Tablet 650 MG PO (21:00)
[2020-05-25] VITALS (13 sets, daily range): BP systolic 135–149; BP diastolic 89–104; PULSE 80–96; RESP 16–20; TEMP 36.3–36.8; O2SAT 96–97
[2020-05-25] MEDS: Morphine 2 MG/ML Syringe IV (01:38)
--- NOTE | 2020-05-25 05:55 | ECHOD_ITS ---
Reason For Study: Arrhythmia Procedure This was a 2D Doppler, Color Flow transthoracic echocardiogram. The study was technically difficult. Patient scanned supine due to recent surgery. Exam performed portable in patient room. Left Ventricle Normal LV size. Left ventricular systolic function is normal. The estimated ejection fraction is 60 %. Stage 1 diastolic dysfunction. No regional wall motion abnormalities noted. Right Ventricle Normal RV size. Normal systolic function. Atria Normal left atrium. Normal right atrium. Mitral Valve Bileaflet diffuse mitral valve thickening. Tricuspid Valve Normal tricuspid valve. Mild (1+) tricuspid valve insufficiency. Pulmonary artery systolic pressure is 30 mmHg. Aortic Valve Normal aortic valve. Pulmonic Valve Normal pulmonic valve. Great Vessels Normal aortic root. The pulmonary artery is normal size. Normal inferior vena cava. Pericardium/Pleural No pericardial effusion. MMode/2D Measurements & Calculations LVIDd: 3.6 cm IVSd: 1.0 cm Ao root diam: 3.2 cm LVIDs: 1.9 cm LVPWd: 0.98 cm RVDd: 2.9 cm FS: 46.2 % LAV(MOD-sp2): 15.2 ml LA dimension(2D): 3.6 cm Doppler Measurements & Calculations MV E max dalton: 36.3 cm/sec Lat Peak E' Dalton: 9.1 cm/sec Med Peak E' Dalton: 6.6 cm/sec MV A max dalton: 63.1 cm/sec E/E' lat: 4.0 E/E' med: 5.5 MV E/A: 0.58 Ao V2 max: 115.3 cm/sec LV V1 max: 84.9 cm/sec PA V2 max: 122.1 cm/sec Ao max P.3 mmHg LV V1 max P.9 mmHg TR max dalton: 263.4 cm/sec TR max P.8 mmHg Interpretation Summary Normal LV size. Left ventricular systolic function is normal. The estimated ejection fraction is 60 %. Stage 1 diastolic dysfunction. Ordering Physician: Katherine Greene Performed By: Ronel De La Cruz RDCS
[2020-05-25] MEDS: Metoprolol Tartrate 25 MG Tablet 12.5 MG PO ×2 (07:47→21:22)
[2020-05-25] MEDS: Famotidine 20 MG Tablet PO ×2 (07:47→21:22)
[2020-05-25] MEDS: metroNIDAZOLE 500 MG/100 ML BAG 100 MG IV ×3 (09:05→21:20)
[2020-05-25] MEDS: Enoxaparin 40 MG/0.4 ML Syringe SC (10:36)
[2020-05-25] MEDS: Ciprofloxacin 400 MG/200 ML BAG 200 MG IV ×2 (10:36→22:38)
--- NOTE | 2020-05-25 12:57 | PN_ITS ---
Patient Problems: Active and Suspected Problems (Last Updated 05/23/20 @ 22:[address] Jon Fields MD) Colonic thickening (Acute) PVC (premature ventricular contraction) (Acute) Tachycardia (Acute) Low grade fever (Acute) S/P colectomy (Acute) Denies previous medical history (Acute) Subjective: Patient seen and examined. He felt well and had no complaints today. Review of stems otherwise negative. Tachycardia has not recurred. Labs and vitals reviewed. He has remained hemodynamically stable. Vitals/I&O's: Vital Signs Temp Pulse Resp BP Pulse Ox 98.3 F 88 16 142/104 H 97 05/25/20 07:45 05/25/20 11:54 05/25/20 07:45 05/25/20 07:45 05/25/20 07:45 Oxygen Flow Rate (L/min) 2 Oxygen Delivery Method Room Air Weight: 165 lb 1.6 oz Body Mass Index (BMI) 29.2 Intake and Output for Last 24 Hours 05/23/20 05/24/20 05/25/20 23:59 23:59 23:59 Intake Total 2733.33 / 2733.33 1896.83 / 1896.83 1878.5 / 1878.5 Output Total 1925 / 1925 700 / 700 900 / 900 Balance 808.33 / 808.33 1196.83 / 1196.83 978.5 / 978.5 General: Alert, Oriented x3, Cooperative HEENT: Atraumatic, PERRLA, EOMI, Normocephalic Oral: Dry Mucosa Neck: Supple, No JVD, Negative Carotid Bruits Lungs: Clear to auscultation, Normal air movement, No rhonchi, No wheeze, No rales Cardiovascular: Irregular Rate - has bigeminy, with regular rate Abdomen: Bowel Sounds Present, Soft, Non Tender Extremities: No edema, Capillary Refill Less than 3 Seconds Skin: - - dressing over abdominal surgical site. Musculoskeletal: No Tenderness to Palpation of Joints or Extremities Lymphatic: No Cervical, Supraclavicular, or Inguinal Adenopathy Neurological: Cranial nerves II-XII grossly intact, Neuro grossly intact, Motor Exam 5/5 strength throughout Psych/Mental Status: Normal Affect, Appropriate, Alert and oriented to time, place, person, mood and affect Current Medications Acetaminophen (Tylenol) 650 mg PO Q6H PRN PRN PRN Reason: Pain Score 1-10/10 Last Admin: 05/24/20 21:00 Dose: 650 mg Documented by: Enoxaparin Sodium (Lovenox) 40 mg SC DAILY [facility] Last Admin: 05/25/20 10:36 Dose: 40 mg Documented by: Famotidine (Pepcid) 20 mg PO BID [facility] Last Admin: 05/25/20 07:47 Dose: 20 mg Documented by: Lactated Ringer's () 1,000 mls @ 30 mls/hr IV .[id number] [facility] Last Infusion: 05/25/20 11:36 Dose: 30 mls/hr Documented by: Ciprofloxacin (Cipro) 400 mg in 200 mls @ 200 mls/hr IV Q12 [facility] Last Infusion: 05/25/20 11:36 Dose: Infused Documented by: Metronidazole (Flagyl) 500 mg in 100 mls @ 100 mls/hr IV Q8 [facility] Last Infusion: 05/25/20 10:05 Dose: Infused Documented by: Metoprolol Tartrate (Lopressor (Beta Sahara)) 12.5 mg PO BID [facility] Last Admin: 05/25/20 07:47 Dose: 12.5 mg Documented by: Morphine Sulfate () 2 - 4 mg IV Q2H PRN PRN PRN Reason: Pain Score 4-10/10 Last Admin: 05/25/20 01:38 Dose: 2 mg Documented by: Morphine Sulfate () 2 - 4 mg IV Q2H PRN PRN PRN Reason: Pain Score 4-10/10 Last Admin: 05/24/20 03:04 Dose: 4 mg Documented by: Nicotine (Nicoderm Cq (Pbkc)) 21 mg TRANSDERM. DAILY [facility] Last Admin: 05/25/20 07:48 Dose: 21 mg Documented by: Ondansetron HCl (Zofran) 4 mg IV Q6H PRN PRN PRN Reason: NAUSEA Oxycodone HCl (Oxyir) 5 mg PO Q4H PRN PRN PRN Reason: Pain Score 6-10/10 Last Admin: 05/24/20 21:00 Dose: 5 mg Documented by: Sodium Chloride () 10 - 40 ml IV UD PRN PRN Reason: SALINE FLUSH Last Admin: 05/24/20 03:04 Dose: 10 ml Documented by: STROKE Vital Signs/Narrative: Vital Signs Pulse 05/25/20 11:54 88 Medical Necessity - Tobacco Use Smoking Status: Current every day smoker Tobacco Use: Chew Assessment/Plan All Active Problems (Last Updated 05/23/20 @ 22:[address] Jon Fields MD) Belching (Acute) Ventral hernia (Acute) Colonic thickening (Acute) PVC (premature ventricular contraction) (Acute) Tachycardia (Acute) Low grade fever (Acute) S/P colectomy (Acute) Denies previous medical history (Acute) # Tachycardia with PVCs * tachycardia has resolved. * 2D echo done; reading is pending * started on metoprolol 12,5mg bid o/a of elevated BP * # Cecal mass s/p right hemicolectomy * management as per primary team, general surgery * pain management as per general surgery * incentive spirometry * # Nicotine dependence: on nicotine. # Hypertension * BP has been elevated, so he was started on PO metoprolol 12.5mg bid * IV hydralazine prn * to follow up with PCP for monitoring of BP and review and adjustment of meds as needed * #DVT prophylaxis; SCDs. Disposition: ok for DC from hospitalist standpoint Inpatient E&M: 53562 Subs Hosp L2
[2020-05-25] MEDS: Acetaminophen 325 MG Tablet 650 MG PO (14:01)
--- NOTE | 2020-05-25 16:23 | CHAPLAIN ---
Type of Pastoral Visit _x__ Initial Visit ___ Follow-up Visit ___ On-call Visit ___ General Patient Visit ___ Spiritual Assessment ___ Family Conference ___ Bereavement ___ Rapid Response ___ Code Blue ___ Other (describe below) Pastoral Care Referral From _x__ Patient ___ Family ___ Nurse ___ Physician ___ Pest Management Supervisor ___ Incinerator Operator ___ Other (describe below) Sacrament/Intervention _x__ Active listening ___ Anointing ___ Evangelical ___ Bereavement ___ Communion _x__ Analisa exploration ___ _x__ Life review _x__ Prayer ___ Reconciliation ___ Sacrament of Sick _x__ Supportive presence ___ Wedding ___ Other (describe below) Pastoral Comments patient that has had added stress and grief recently; pt has family and pentecostal involvement along with his analisa in God for his support
[2020-05-25] MEDS: Ondansetron 4 MG/2 ML Vial IV (18:24)
[2020-05-26] VITALS (13 sets, daily range): BP systolic 123–158; BP diastolic 82–102; PULSE 74–91; RESP 16–18; TEMP 36.5–37.2; O2SAT 94–97
[2020-05-26] MEDS: Acetaminophen 325 MG Tablet 650 MG PO (01:37)
[2020-05-26] MEDS: Morphine 4 MG/ML Syringe IV (02:47)
[2020-05-26] MEDS: metroNIDAZOLE 500 MG/100 ML BAG 100 MG IV ×3 (06:11→20:40)
--- NOTE | 2020-05-26 07:38 | PN_ITS ---
Patient Problems: Active and Suspected Problems (Last Updated 05/23/20 @ 22:[address] Jon Fields MD) Colonic thickening (Acute) PVC (premature ventricular contraction) (Acute) Tachycardia (Acute) Low grade fever (Acute) S/P colectomy (Acute) Denies previous medical history (Acute) Subjective: Patient seen and examined. He has no complaints today. Tachycardia has resolved. He has remained hemodynamically stable. Blood pressure control is improving. Vitals/I&O's: Vital Signs Temp Pulse Resp BP Pulse Ox 98.9 F 77 18 132/82 H 97 05/26/20 02:49 05/26/20 03:00 05/26/20 02:49 05/26/20 02:49 05/26/20 02:49 Oxygen Flow Rate (L/min) 2 Oxygen Delivery Method Room Air Weight: 165 lb 1.6 oz Body Mass Index (BMI) 29.2 Intake and Output for Last 24 Hours 05/24/20 05/25/20 05/26/20 23:59 23:59 23:59 Intake Total 1896.83 / 1896.83 2800.5 / 2800.5 100 / 100 Output Total 700 / 700 900 / 900 Balance 1196.83 / 1196.83 1900.5 / 1900.5 100 / 100 General: Alert, Oriented x3, Cooperative HEENT: Atraumatic, PERRLA, EOMI, Normocephalic Oral: Dry Mucosa Neck: Supple, No JVD, Negative Carotid Bruits Lungs: Clear to auscultation, Normal air movement, No rhonchi, No wheeze, No rales Cardiovascular: Irregular Rate - has bigeminy, with regular rate Abdomen: Bowel Sounds Present, Soft, Non Tender Extremities: No edema, Capillary Refill Less than 3 Seconds Skin: - - dressing over abdominal surgical site. Musculoskeletal: No Tenderness to Palpation of Joints or Extremities Lymphatic: No Cervical, Supraclavicular, or Inguinal Adenopathy Neurological: Cranial nerves II-XII grossly intact, Neuro grossly intact, Motor Exam 5/5 strength throughout Psych/Mental Status: Normal Affect, Appropriate, Alert and oriented to time, place, person, mood and affect Current Medications Acetaminophen (Tylenol) 650 mg PO Q6H PRN PRN PRN Reason: Pain Score 1-10/10 Last Admin: 05/26/20 01:37 Dose: 650 mg Documented by: Enoxaparin Sodium (Lovenox) 40 mg SC DAILY [facility] Last Admin: 05/25/20 10:36 Dose: 40 mg Documented by: Famotidine (Pepcid) 20 mg PO BID [facility] Last Admin: 05/25/20 21:22 Dose: 20 mg Documented by: Lactated Ringer's () 1,000 mls @ 30 mls/hr IV .[id number] [facility] Last Infusion: 05/25/20 23:38 Dose: 30 mls/hr Documented by: Ciprofloxacin (Cipro) 400 mg in 200 mls @ 200 mls/hr IV Q12 [facility] Last Infusion: 05/25/20 23:38 Dose: Infused Documented by: Metronidazole (Flagyl) 500 mg in 100 mls @ 100 mls/hr IV Q8 [facility] Last Admin: 05/26/20 06:11 Dose: 100 mls/hr Documented by: Metoprolol Tartrate (Lopressor (Beta Sah[place])) 12.5 mg PO BID [facility] Last Admin: 05/25/20 21:22 Dose: 12.5 mg Documented by: Morphine Sulfate () 2 - 4 mg IV Q2H PRN PRN PRN Reason: Pain Score 4-10/10 Last Admin: 05/25/20 01:38 Dose: 2 mg Documented by: Morphine Sulfate () 2 - 4 mg IV Q2H PRN PRN PRN Reason: Pain Score 4-10/10 Last Admin: 05/26/20 02:47 Dose: 4 mg Documented by: Nicotine (Nicoderm Cq (Pbkc)) 21 mg TRANSDERM. DAILY [facility] Last Admin: 05/25/20 07:48 Dose: 21 mg Documented by: Ondansetron HCl (Zofran) 4 mg IV Q6H PRN PRN PRN Reason: NAUSEA Last Admin: 05/25/20 18:24 Dose: 4 mg Documented by: Oxycodone HCl (Oxyir) 5 mg PO Q4H PRN PRN PRN Reason: Pain Score 6-10/10 Last Admin: 05/24/20 21:00 Dose: 5 mg Documented by: Sodium Chloride () 10 - 40 ml IV UD PRN PRN Reason: SALINE FLUSH Last Admin: 05/24/20 03:04 Dose: 10 ml Documented by: Medical Necessity - Tobacco Use Smoking Status: Current every day smoker Tobacco Use: Chew Assessment/Plan All Active Problems (Last Updated 05/23/20 @ 22:[address] Jon Fields MD) Belching (Acute) Ventral hernia (Acute) Colonic thickening (Acute) PVC (premature ventricular contraction) (Acute) Tachycardia (Acute) Low grade fever (Acute) S/P colectomy (Acute) Denies previous medical history (Acute) # Tachycardia with PVCs * tachycardia has resolved. * 2D echo: EF of 60% with normal left ventricular size and function. Stage I diastolic dysfunction with no regional wall motion abnormalities seen. Pulmonary artery systolic pressure was 30 mmHg. * started on metoprolol 12,5mg bid o/a of elevated BP * # Cecal mass s/p right hemicolectomy * management as per primary team, general surgery * pain management as per general surgery * incentive spirometry * # Nicotine dependence: on nicotine. # Hypertension * on PO metoprolol 12.5mg bid. * to follow up with PCP for monitoring of BP and review and adjustment of meds as needed * #DVT prophylaxis; SCDs. Disposition: ok for DC from hospitalist standpoint Inpatient E&M: 67524 Subs Hosp L2
--- NOTE | 2020-05-26 08:34 | PN.SURG_ITS ---
Patient Problems: Active and Suspected Problems (Last Updated 05/23/20 @ 22:[address] Jon Fields MD) Colonic thickening (Acute) PVC (premature ventricular contraction) (Acute) Tachycardia (Acute) Low grade fever (Acute) S/P colectomy (Acute) Denies previous medical history (Acute) Subjective: Patient reports that when he tried full liquids yesterday he began to have some bloating and belching. He only took in some Jell-O and ice cream yesterday. He does report that he passing flatus this morning. - Physical Exam Vitals/I&O's: Vital Signs Temp Pulse Resp BP Pulse Ox 98.9 F 74 18 132/82 H 97 05/26/20 02:49 05/26/20 08:01 05/26/20 02:49 05/26/20 02:49 05/26/20 02:49 Oxygen Flow Rate (L/min) 2 Oxygen Delivery Method Room Air Weight: 165 lb 1.6 oz Body Mass Index (BMI) 29.2 Intake and Output for Last 24 Hours 05/24/20 05/25/20 05/26/20 23:59 23:59 23:59 Intake Total 1896.83 / 1896.83 2800.5 / 2800.5 100 / 100 Output Total 700 / 700 900 / 900 Balance 1196.83 / 1196.83 1900.5 / 1900.5 100 / 100 General: Alert, Oriented x3 Lungs: Normal air movement Abdomen: Soft, Non Tender Current Medications Acetaminophen (Tylenol) 650 mg PO Q6H PRN PRN PRN Reason: Pain Score 1-1010 Last Admin: 05/26/20 01:37 Dose: 650 mg Documented by: Enoxaparin Sodium (Lovenox) 40 mg SC DAILY [facility] Last Admin: 05/25/20 10:36 Dose: 40 mg Documented by: Famotidine (Pepcid) 20 mg PO BID [facility] Last Admin: 05/25/20 21:22 Dose: 20 mg Documented by: Lactated Ringer's () 1,000 mls @ 30 mls/hr IV .[id number] [facility] Last Infusion: 05/25/20 23:38 Dose: 30 mls/hr Documented by: Ciprofloxacin (Cipro) 400 mg in 200 mls @ 200 mls/hr IV Q12 [facility] Last Infusion: 05/25/20 23:38 Dose: Infused Documented by: Metronidazole (Flagyl) 500 mg in 100 mls @ 100 mls/hr IV Q8 [facility] Last Admin: 05/26/20 06:11 Dose: 100 mls/hr Documented by: Metoprolol Tartrate (Lopressor (Beta [place])) 12.5 mg PO BID [facility] Last Admin: 05/25/20 21:22 Dose: 12.5 mg Documented by: Morphine Sulfate () 2 - 4 mg IV Q2H PRN PRN PRN Reason: Pain Score 4-10/10 Last Admin: 05/25/20 01:38 Dose: 2 mg Documented by: Morphine Sulfate () 2 - 4 mg IV Q2H PRN PRN PRN Reason: Pain Score 4-1010 Last Admin: 05/26/20 02:47 Dose: 4 mg Documented by: Nicotine (Nicoderm Cq (Pbkc)) 21 mg TRANSDERM. DAILY [facility] Last Admin: 05/25/20 07:48 Dose: 21 mg Documented by: Ondansetron HCl (Zofran) 4 mg IV Q6H PRN PRN PRN Reason: NAUSEA Last Admin: 05/25/20 18:24 Dose: 4 mg Documented by: Oxycodone HCl (Oxyir) 5 mg PO Q4H PRN PRN PRN Reason: Pain Score 6-10/10 Last Admin: 05/24/20 21:00 Dose: 5 mg Documented by: Sodium Chloride () 10 - 40 ml IV UD PRN PRN Reason: SALINE FLUSH Last Admin: 05/24/20 03:04 Dose: 10 ml Documented by: Medical Necessity - Tobacco Use Smoking Status: Current every day smoker Tobacco Use: Chew Assessment/Plan All Active Problems (Last Updated 05/23/20 @ 22:[address] Jon Fields MD) Belching (Acute) Ventral hernia (Acute) Colonic thickening (Acute) PVC (premature ventricular contraction) (Acute) Tachycardia (Acute) Low grade fever (Acute) S/P colectomy (Acute) Denies previous medical history (Acute) 65-year-old male status post right hemicolectomy 1. Patient appears to be doing well. He did have some nausea with trying full liquids yesterday. I advised him to continue ambulating and try diet today. If he tolerates diet today he might be ready for discharge this evening versus tomorrow morning. Patient's incision is clean dry and intact this morning. Mohinder Shipman MD Pager: [facility] [address] [place] [address] [address] [place] [address] Office:
[2020-05-26] MEDS: Famotidine 20 MG Tablet PO (08:52)
[2020-05-26] MEDS: Enoxaparin 40 MG/0.4 ML Syringe SC (08:52)
[2020-05-26] MEDS: Metoprolol Tartrate 25 MG Tablet 12.5 MG PO ×2 (08:52→20:40)
[2020-05-26] MEDS: Ciprofloxacin 400 MG/200 ML BAG 200 MG IV ×2 (09:43→22:14)
[2020-05-26] MEDS: Pantoprazole Sodium 20 MG Tablet PO ×2 (10:49→20:40)
[2020-05-26] MEDS: Lactated Ringers 1,000 ML 30 ML IV (10:50)
[2020-05-26] MEDS: Ondansetron 4 MG/2 ML Vial IV (15:57)
[2020-05-26] MEDS: 0.9% Saline Lock 10 ML Syringe IV (15:57)
[2020-05-27] VITALS (10 sets, daily range): BP systolic 129–149; BP diastolic 75–99; PULSE 71–83; RESP 17–18; TEMP 36.6–36.7; O2SAT 95–99
[2020-05-27] MEDS: oxyCODONE 5 MG Tablet PO ×2 (01:04→08:56)
[2020-05-27] MEDS: Acetaminophen 325 MG Tablet 650 MG PO ×2 (01:05→08:56)
[2020-05-27] MEDS: metroNIDAZOLE 500 MG/100 ML BAG 100 MG IV ×3 (05:55→21:25)
--- NOTE | 2020-05-27 07:41 | PCM.PN.SRG ---
Patient Problems: Active and Suspected Problems (Last Updated 05/23/20 @ 22:[address] Jon Fields MD) Colonic thickening (Acute) PVC (premature ventricular contraction) (Acute) Tachycardia (Acute) Low grade fever (Acute) S/P colectomy (Acute) Denies previous medical history (Acute) Subjective: Patient is still having belching. He says he is passing gas but he feels bloated anytime he eats anything. Abdominal pain is well controlled. - Physical Exam Vitals/I&O's: Vital Signs Temp Pulse Resp BP Pulse Ox 98.1 F 80 17 129/75 H 95 05/27/20 02:08 05/27/20 03:00 05/27/20 02:08 05/27/20 02:08 05/27/20 02:08 Oxygen Flow Rate (L/min) 2 Oxygen Delivery Method Room Air Weight: 165 lb 1.6 oz Body Mass Index (BMI) 29.2 Intake and Output for Last 24 Hours 05/25/20 05/26/20 05/27/20 23:59 23:59 23:59 Intake Total 2800.5 / 2800.5 1834.5 / 1834.5 650.5 / 650.5 Output Total 900 / 900 Balance 1900.5 / 1900.5 1834.5 / 1834.5 650.5 / 650.5 General: Alert, Cooperative Neck: No JVD Abdomen: Soft, Non Tender, Non-Distended Current Medications Acetaminophen (Tylenol) 650 mg PO Q6H PRN PRN PRN Reason: Pain Score 1-10/10 Last Admin: 05/27/20 01:05 Dose: 650 mg Documented by: Bisacodyl (Dulcolax) 10 mg RECTAL X1 ONE Stop: 05/27/20 07:41 Docusate Sodium (Colace) 100 mg PO BID [facility] Enoxaparin Sodium (Lovenox) 40 mg SC DAILY [facility] Last Admin: 05/26/20 08:52 Dose: 40 mg Documented by: Lactated Ringer's () 1,000 mls @ 30 mls/hr IV .[id number] [facility] Last Infusion: 05/27/20 06:55 Dose: 30 mls/hr Documented by: Ciprofloxacin (Cipro) 400 mg in 200 mls @ 200 mls/hr IV Q12 [facility] Last Infusion: 05/26/20 23:14 Dose: Infused Documented by: Metronidazole (Flagyl) 500 mg in 100 mls @ 100 mls/hr IV Q8 [facility] Last Infusion: 05/27/20 06:55 Dose: Infused Documented by: Metoprolol Tartrate (Lopressor (Beta Sahara)) 12.5 mg PO BID [facility] Last Admin: 05/26/20 20:40 Dose: 12.5 mg Documented by: Morphine Sulfate () 2 - 4 mg IV Q2H PRN PRN PRN Reason: Pain Score 4-1010 Last Admin: 05/25/20 01:38 Dose: 2 mg Documented by: Morphine Sulfate () 2 - 4 mg IV Q2H PRN PRN PRN Reason: Pain Score 4-1010 Last Admin: 05/26/20 02:47 Dose: 4 mg Documented by: Nicotine (Nicoderm Cq (Pbkc)) 21 mg TRANSDERM. DAILY [facility] Last Admin: 05/26/20 08:52 Dose: 21 mg Documented by: Ondansetron HCl (Zofran) 4 mg IV Q6H PRN PRN PRN Reason: NAUSEA Last Admin: 05/26/20 15:57 Dose: 4 mg Documented by: Oxycodone HCl (Oxyir) 5 mg PO Q4H PRN PRN PRN Reason: Pain Score 6-10/10 Last Admin: 05/27/20 01:04 Dose: 5 mg Documented by: Pantoprazole Sodium (Protonix) 20 mg PO BID [facility] Last Admin: 05/26/20 20:40 Dose: 20 mg Documented by: Sodium Chloride () 10 - 40 ml IV UD PRN PRN Reason: SALINE FLUSH Last Admin: 05/26/20 15:57 Dose: 10 ml Documented by: Medical Necessity - Tobacco Use Smoking Status: Current every day smoker Tobacco Use: Chew Assessment/Plan All Active Problems (Last Updated 05/23/20 @ 22:[address] Jon Fields MD) Belching (Acute) Ventral hernia (Acute) Colonic thickening (Acute) PVC (premature ventricular contraction) (Acute) Tachycardia (Acute) Low grade fever (Acute) S/P colectomy (Acute) Denies previous medical history (Acute) 65-year-old male status post right hemicolectomy for obstructing mass 1. Patient reports he is having flatus but also belching. He is only tolerating clears so far. I will order him a Dulcolax suppository. Continue diet as tolerated and I will add Colace as well. Check labs today. Mohinder Shipman MD Pager: [facility] [address] [place] [address], [address] [place] [phone] Office:
--- NOTE | 2020-05-27 07:42 | PN_ITS ---
Patient Problems: Active and Suspected Problems (Last Updated 05/23/20 @ 22:[address] Jon Fields MD) Colonic thickening (Acute) PVC (premature ventricular contraction) (Acute) Tachycardia (Acute) Low grade fever (Acute) S/P colectomy (Acute) Denies previous medical history (Acute) Subjective: Patient seen and examined. He is on full liquids as per general surgery. He did pass flatus this morning. He has no other complaints. He has remained hemodynamically stable. Vitals/I&O's: Vital Signs Temp Pulse Resp BP Pulse Ox 98.1 F 80 17 129/75 H 95 05/27/20 02:08 05/27/20 03:00 05/27/20 02:08 05/27/20 02:08 05/27/20 02:08 Oxygen Flow Rate (L/min) 2 Oxygen Delivery Method Room Air Weight: 165 lb 1.6 oz Body Mass Index (BMI) 29.2 Intake and Output for Last 24 Hours 05/25/20 05/26/20 05/27/20 23:59 23:59 23:59 Intake Total 2800.5 / 2800.5 1834.5 / 1834.5 650.5 / 650.5 Output Total 900 / 900 Balance 1900.5 / 1900.5 1834.5 / 1834.5 650.5 / 650.5 General: Alert, Oriented x3, Cooperative HEENT: Atraumatic, PERRLA, EOMI, Normocephalic Oral: Dry Mucosa Neck: Supple, No JVD, Negative Carotid Bruits Lungs: Clear to auscultation, Normal air movement, No rhonchi, No wheeze, No rales Cardiovascular: Irregular Rate - has bigeminy, with regular rate Abdomen: Bowel Sounds Present, Soft, Non Tender Extremities: No edema, Capillary Refill Less than 3 Seconds Skin: - - dressing over abdominal surgical site. Musculoskeletal: No Tenderness to Palpation of Joints or Extremities Lymphatic: No Cervical, Supraclavicular, or Inguinal Adenopathy Neurological: Cranial nerves II-XII grossly intact, Neuro grossly intact, Motor Exam 5/5 strength throughout Psych/Mental Status: Normal Affect, Appropriate, Alert and oriented to time, place, person, mood and affect Current Medications Current Medications Acetaminophen (Tylenol) 650 mg PO Q6H PRN PRN PRN Reason: Pain Score 1-10/10 Last Admin: 05/27/20 01:05 Dose: 650 mg Documented by: Bisacodyl (Dulcolax) 10 mg RECTAL X1 ONE Stop: 05/27/20 07:41 Docusate Sodium (Colace) 100 mg PO BID [facility] Enoxaparin Sodium (Lovenox) 40 mg SC DAILY [facility] Last Admin: 05/26/20 08:52 Dose: 40 mg Documented by: Lactated Ringer's () 1,000 mls @ 30 mls/hr IV .[id number] [facility] Last Infusion: 05/27/20 06:55 Dose: 30 mls/hr Documented by: Ciprofloxacin (Cipro) 400 mg in 200 mls @ 200 mls/hr IV Q12 [facility] Last Infusion: 05/26/20 23:14 Dose: Infused Documented by: Metronidazole (Flagyl) 500 mg in 100 mls @ 100 mls/hr IV Q8 [facility] Last Infusion: 05/27/20 06:55 Dose: Infused Documented by: Metoprolol Tartrate (Lopressor (Beta Sahara)) 12.5 mg PO BID [facility] Last Admin: 05/26/20 20:40 Dose: 12.5 mg Documented by: Morphine Sulfate () 2 - 4 mg IV Q2H PRN PRN PRN Reason: Pain Score 4-10/10 Last Admin: 05/25/20 01:38 Dose: 2 mg Documented by: Morphine Sulfate () 2 - 4 mg IV Q2H PRN PRN PRN Reason: Pain Score 4-10/10 Last Admin: 05/26/20 02:47 Dose: 4 mg Documented by: Nicotine (Nicoderm Cq (Pbkc)) 21 mg TRANSDERM. DAILY [facility] Last Admin: 05/26/20 08:52 Dose: 21 mg Documented by: Ondansetron HCl (Zofran) 4 mg IV Q6H PRN PRN PRN Reason: NAUSEA Last Admin: 05/26/20 15:57 Dose: 4 mg Documented by: Oxycodone HCl (Oxyir) 5 mg PO Q4H PRN PRN PRN Reason: Pain Score 6-10/10 Last Admin: 05/27/20 01:04 Dose: 5 mg Documented by: Pantoprazole Sodium (Protonix) 20 mg PO BID [facility] Last Admin: 05/26/20 20:40 Dose: 20 mg Documented by: Sodium Chloride () 10 - 40 ml IV UD PRN PRN Reason: SALINE FLUSH Last Admin: 05/26/20 15:57 Dose: 10 ml Documented by: Medical Necessity - Tobacco Use Smoking Status: Current every day smoker Tobacco Use: Chew Assessment/Plan All Active Problems (Last Updated 05/23/20 @ 22:[address] Jon Fields MD) Belching (Acute) Ventral hernia (Acute) Colonic thickening (Acute) PVC (premature ventricular contraction) (Acute) Tachycardia (Acute) Low grade fever (Acute) S/P colectomy (Acute) Denies previous medical history (Acute) # Tachycardia with PVCs * tachycardia has resolved. * 2D echo: EF of 60% with normal left ventricular size and function. Stage I diastolic dysfunction with no regional wall motion abnormalities seen. Pulmonary artery systolic pressure was 30 mmHg. * # Cecal mass s/p right hemicolectomy * management as per primary team, general surgery * pain management as per general surgery * incentive spirometry * # Nicotine dependence: on nicotine. # Hypertension * on PO metoprolol 12.5mg bid. * BP has been in the 120s systolic now * to follow up with PCP for monitoring of BP and review and adjustment of meds as needed * #DVT prophylaxis; SCDs. Disposition: ok for DC from hospitalist standpoint Inpatient E&M: 32207 Subs Hosp L2
[2020-05-27 08:09] LABS: Absolute Lymphocyte Count 1.27 X10^3/uL (0.83-4.51); Absolute Neutrophil Count 5.7 X10^3/uL (2.0-7.7); Basophil# 0.05 X10^3/uL; Basophil% 0.6 % (0-1); Eosinophil# 0.07 X10^3/uL; Eosinophils% 0.9 % (0-5); Hematocrit 46.6 % (40-54); Hemoglobin 15.2 g/dL (13.0-16.5); Lymphocyte # 1.27 X10^3/ul (4.0); Lymphocyte % 15.9 % (19-41); Mean Corp Hgb Conc 32.6 g/dL (32-36); Mean Corpuscular Hgb 29.2 pg (27.0-32.0); Mean Corpuscular Volume 89.6 fL (80-94); Mean Platelet Vol. 9.8 fl (6.2-12.0); Monocyte# 0.79 X10^3/uL; Monocyte% 9.9 % (0-10); NRBC Flagged by Analyzer 0 % (0-5); Neutrophil # 5.71 X10^3/uL (2.7-7.7); Neutrophil % 71.6 % (47-70); Platelet Count 370 K/mm3 (150-450); RBC Distribution Width CV 13.5 % (11.6-14.6); RBC Distribution Width SD 44.7 fl (35.1-43.9)
[2020-05-27 08:16] LABS: Anion Gap 9 (5-15); BUN 17 mg/dL (7-18); BUN/Creat Ratio 20.9 RATIO (10-20); Calcium,Total 8.6 mg/dL (8.5-10.1); Chloride 105 mmol/L (98-107); Creatinine, Serum 0.81 mg/dL (0.70-1.30); EST Glomerular Filtration Rate 102 mL/min (>60); Est Glom Filt Rate - Afr Amer 123 mL/min (>60); Estimated Creatinine Clearance 74.15 ml/min; Glucose 109 mg/dL (74-106); Magnesium 2.2 mg/dL (1.6-2.6); Phosphorus 2.9 mg/dL (2.5-4.9); Potassium 3.3 mmol/L (3.5-5.1); Sodium Level 140 mmol/L (136-145)
[2020-05-27] MEDS: Metoprolol Tartrate 25 MG Tablet 12.5 MG PO ×2 (08:52→21:38)
[2020-05-27] MEDS: Bisacodyl 10 MG Suppository RECTAL (08:53)
[2020-05-27] MEDS: Enoxaparin 40 MG/0.4 ML Syringe SC (08:53)
[2020-05-27] MEDS: Pantoprazole Sodium 20 MG Tablet PO ×2 (08:53→21:39)
[2020-05-27] MEDS: Docusate Sodium 100 MG Capsule PO ×2 (08:57→21:39)
[2020-05-27] MEDS: Ciprofloxacin 400 MG/200 ML BAG 200 MG IV ×2 (08:57→22:45)
[2020-05-27] MEDS: Potassium Chloride 10mEq/100mL 10 MEQ/100 ML IV.SOLN. 100 MEQ IV BOLUS ×3 (10:52→13:25)
--- NOTE | 2020-05-27 13:57 | CASEMGMT ---
RN CM NOTE: To room to talk with pt. Introduced self and role of RN CM. Pt resting in bed, awake/alert/oriented. Discussed discharge plans. Pt states he has not concerns w/going home at discharge, does not feel he needs any HHC or OP therapy, denies need for DME, and denies having any questions, concerns/needs. Pt instructed to ask for RN CM if anything arises. Dee EASTMAN RN CM
[2020-05-27] MEDS: 0.9% Saline Lock 10 ML Syringe IV (21:25)
[2020-05-27] MEDS: Lactated Ringers 1,000 ML 30 ML IV (22:41)
[2020-05-28 04:38] VITALS: BP 125/94; PULSE 80; RESP 18; TEMP 36.7; O2SAT 95
[2020-05-28] MEDS: metroNIDAZOLE 500 MG/100 ML BAG 100 MG IV (05:12)
[2020-05-28] MEDS: 0.9% Saline Lock 10 ML Syringe IV (05:12)
[2020-05-28 05:30] VITALS: PULSE 77
--- NOTE | 2020-05-28 07:29 | PCM.PN.HOSP ---
Patient Problems: Active and Suspected Problems (Last Updated 05/23/20 @ 22:[address] Jon Fields MD) Colonic thickening (Acute) PVC (premature ventricular contraction) (Acute) Tachycardia (Acute) Low grade fever (Acute) S/P colectomy (Acute) Denies previous medical history (Acute) Subjective: Patient seen and examined. He has no complaints and had an uneventful night. He has remained hemodynamically stable. Blood pressure is also improving. Vitals/I&O's: Vital Signs Temp Pulse Resp BP Pulse Ox 98.1 F 77 18 125/94 H 95 05/28/20 04:38 05/28/20 05:30 05/28/20 04:38 05/28/20 04:38 05/28/20 04:38 Oxygen Flow Rate (L/min) 2 Oxygen Delivery Method Room Air Weight: 165 lb 1.6 oz Body Mass Index (BMI) 29.2 Intake and Output for Last 24 Hours 05/26/20 05/27/20 05/28/20 23:59 23:59 23:59 Intake Total 1834.5 / 1834.5 2676.50 / 2676.50 563.5 / 563.5 Balance 1834.5 / 1834.5 2676.50 / 2676.50 563.5 / 563.5 General: Alert, Oriented x3, Cooperative HEENT: Atraumatic, PERRLA, EOMI, Normocephalic Oral: Dry Mucosa Neck: Supple, No JVD, Negative Carotid Bruits Lungs: Clear to auscultation, Normal air movement, No rhonchi, No wheeze, No rales Cardiovascular: Irregular Rate - has bigeminy, with regular rate Abdomen: Bowel Sounds Present, Soft, Non Tender Extremities: No edema, Capillary Refill Less than 3 Seconds Skin: - - dressing over abdominal surgical site. Musculoskeletal: No Tenderness to Palpation of Joints or Extremities Lymphatic: No Cervical, Supraclavicular, or Inguinal Adenopathy Neurological: Cranial nerves II-XII grossly intact, Neuro grossly intact, Motor Exam 5/5 strength throughout Psych/Mental Status: Normal Affect, Appropriate, Alert and oriented to time, place, person, mood and affect Laboratory Results 05/27/20 07:54: WBC 8.0, RBC 5.20, Hgb 15.2, Hct 46.6, MCV 89.6, MCH 29.2, MCHC 32.6, RDW Std Deviation 44.7 H, RDW Coeff of Gregory 13.5, Plt Count 370, MPV 9.8, Immature Gran % (Auto) 1.100 H, Neut % (Auto) 71.6 H, Lymph % (Auto) 15.9 L, Emanuel % (Auto) 9.9, Eos % (Auto) 0.9, Baso % (Auto) 0.6, Absolute Neuts (auto) 5.7, Absolute Lymphs (auto) 1.27, Nucleated RBC % 0 05/27/20 07:54: Sodium 140, Potassium 3.3 L, Chloride 105, Carbon Dioxide 26.0, Anion Gap 9, BUN 17, Creatinine 0.81, Estim Creat Clear Calc 74.15, Est GFR (MDRD) Af Amer 123, Est GFR (MDRD) Non-Af 102, BUN/Creatinine Ratio 20.9 H, Glucose 109 H, Calcium 8.6, Phosphorus 2.9, Magnesium 2.2 Diagnostic Data Abdomen/Pelvis CT 05/21/20 15:05 IMPRESSION: Distal small bowel dilatation due to a inflammatory mass lesion in the region of the terminal ileum/cecum with the a dilated retroareolar cecal appendix. A mucocele should be ruled out. Electronically Signed: Ulises Reyes, at 15:45 EDT , Service support , KUB X-Ray 05/21/20 19:18 IMPRESSION: NG tube with its tip overlying the gastric air bubble. Electronically Signed: Shan Villegas DO at 20:13 EDT Tel [phone], Service support , Current Medications Acetaminophen (Tylenol) 650 mg PO Q6H PRN PRN PRN Reason: Pain Score 1-05/30 Last Admin: 05/27/20 08:56 Dose: 650 mg Documented by: Docusate Sodium (Colace) 100 mg PO BID [facility] Last Admin: 05/27/20 21:39 Dose: 100 mg Documented by: Enoxaparin Sodium (Lovenox) 40 mg SC DAILY [facility] Last Admin: 05/27/20 08:53 Dose: 40 mg Documented by: Lactated Ringer's () 1,000 mls @ 30 mls/hr IV .[id number] [facility] Last Infusion: 05/28/20 06:36 Dose: 30 mls/hr Documented by: Ciprofloxacin (Cipro) 400 mg in 200 mls @ 200 mls/hr IV Q12 [facility] Last Infusion: 05/27/20 23:45 Dose: Infused Documented by: Metronidazole (Flagyl) 500 mg in 100 mls @ 100 mls/hr IV Q8 [facility] Last Infusion: 05/28/20 06:36 Dose: Infused Documented by: Sodium Chloride () 250 mls @ 15 mls/hr IV .[id number] PRN PRN Reason: Saline Flush Last Infusion: 05/27/20 16:31 Dose: 0 mls/hr Documented by: Sodium Chloride () 250 mls @ 15 mls/hr IV .[id number] PRN PRN Reason: Additional IVPB Infusion Metoprolol Tartrate (Lopressor (Beta Sahara)) 12.5 mg PO BID [facility] Last Admin: 05/27/20 21:38 Dose: 12.5 mg Documented by: Morphine Sulfate () 2 - 4 mg IV Q2H PRN PRN PRN Reason: Pain Score 4-10/10 Last Admin: 05/25/20 01:38 Dose: 2 mg Documented by: Morphine Sulfate () 2 - 4 mg IV Q2H PRN PRN PRN Reason: Pain Score 4-10/10 Last Admin: 05/26/20 02:47 Dose: 4 mg Documented by: Nicotine (Nicoderm Cq (Pbkc)) 21 mg TRANSDERM. DAILY [facility] Last Admin: 05/27/20 08:53 Dose: 21 mg Documented by: Ondansetron HCl (Zofran) 4 mg IV Q6H PRN PRN PRN Reason: NAUSEA Last Admin: 05/26/20 15:57 Dose: 4 mg Documented by: Oxycodone HCl (Oxyir) 5 mg PO Q4H PRN PRN PRN Reason: Pain Score 6-10/10 Last Admin: 05/27/20 08:56 Dose: 5 mg Documented by: Pantoprazole Sodium (Protonix) 20 mg PO BID [facility] Last Admin: 05/27/20 21:39 Dose: 20 mg Documented by: Sodium Chloride () 10 - 40 ml IV UD PRN PRN Reason: SALINE FLUSH Last Admin: 05/28/20 05:12 Dose: 10 ml Documented by: STROKE Vital Signs/Narrative: Vital Signs Temp Pulse Resp BP Pulse Ox 05/28/20 05:30 77 05/28/20 04:38 98.1 F 80 18 125/94 H 95 Medical Necessity - Tobacco Use Smoking Status: Current every day smoker Tobacco Use: Chew Assessment/Plan All Active Problems (Last Updated 05/23/20 @ 22:[address] Jon Fields MD) Belching (Acute) Ventral hernia (Acute) Colonic thickening (Acute) PVC (premature ventricular contraction) (Acute) Tachycardia (Acute) Low grade fever (Acute) S/P colectomy (Acute) Denies previous medical history (Acute) # Tachycardia with PVCs resolved 2D echo: EF of 60% with normal left ventricular size and function. Stage I diastolic dysfunction with no regional wall motion abnormalities seen. Pulmonary artery systolic pressure was 30 mmHg. # Cecal mass s/p right hemicolectomy management as per primary team, general surgery pain management as per general surgery incentive spirometry # Nicotine dependence: on nicotine. # Hypertension on PO metoprolol 12.5mg bid. control has improved markedly. BP now in 120s systolic to follow up with PCP for monitoring of BP and review and adjustment of meds as needed #DVT prophylaxis; SCDs. Inpatient E&M: 77914 Subs Hosp L2
--- NOTE | 2020-05-28 07:49 | PCM.PN.SRG ---
Patient Problems: Active and Suspected Problems (Last Updated 05/23/20 @ 22:[address] Jon Fields MD) Colonic thickening (Acute) PVC (premature ventricular contraction) (Acute) Tachycardia (Acute) Low grade fever (Acute) S/P colectomy (Acute) Denies previous medical history (Acute) Subjective: Patient reports he had 2 bowel movements overnight. He is tolerating full liquids no nausea or vomiting he reports that the bloating is improved and he is passing flatus - Physical Exam Vitals/I&O's: Vital Signs Temp Pulse Resp BP Pulse Ox 98.1 F 77 18 125/94 H 95 05/28/20 04:38 05/28/20 05:30 05/28/20 04:38 05/28/20 04:38 05/28/20 04:38 Oxygen Flow Rate (L/min) 2 Oxygen Delivery Method Room Air Weight: 165 lb 1.6 oz Body Mass Index (BMI) 29.2 Intake and Output for Last 24 Hours 05/26/20 05/27/20 05/28/20 23:59 23:59 23:59 Intake Total 1834.5 / 1834.5 2676.50 / 2676.50 563.5 / 563.5 Balance 1834.5 / 1834.5 2676.50 / 2676.50 563.5 / 563.5 General: Alert, Oriented x3 Lungs: Normal air movement Abdomen: Soft, Non Tender, Non-Distended Laboratory Results 05/27/20 07:54: WBC 8.0, RBC 5.20, Hgb 15.2, Hct 46.6, MCV 89.6, MCH 29.2, MCHC 32.6, RDW Std Deviation 44.7 H, RDW Coeff of Gregory 13.5, Plt Count 370, MPV 9.8, Immature Gran % (Auto) 1.100 H, Neut % (Auto) 71.6 H, Lymph % (Auto) 15.9 L, Desha % (Auto) 9.9, Eos % (Auto) 0.9, Baso % (Auto) 0.6, Absolute Neuts (auto) 5.7, Absolute Lymphs (auto) 1.27, Nucleated RBC % 0 05/27/20 07:54: Sodium 140, Potassium 3.3 L, Chloride 105, Carbon Dioxide 26.0, Anion Gap 9, BUN 17, Creatinine 0.81, Estim Creat Clear Calc 74.15, Est GFR (MDRD) Af Amer 123, Est GFR (MDRD) Non-Af 102, BUN/Creatinine Ratio 20.9 H, Glucose 109 H, Calcium 8.6, Phosphorus 2.9, Magnesium 2.2 Current Medications Acetaminophen (Tylenol) 650 mg PO Q6H PRN PRN PRN Reason: Pain Score 1-05/30 Last Admin: 05/27/20 08:56 Dose: 650 mg Documented by: Docusate Sodium (Colace) 100 mg PO BID [facility] Last Admin: 05/27/20 21:39 Dose: 100 mg Documented by: Enoxaparin Sodium (Lovenox) 40 mg SC DAILY [facility] Last Admin: 05/27/20 08:53 Dose: 40 mg Documented by: Ciprofloxacin (Cipro) 400 mg in 200 mls @ 200 mls/hr IV Q12 [facility] Last Infusion: 05/27/20 23:45 Dose: Infused Documented by: Metronidazole (Flagyl) 500 mg in 100 mls @ 100 mls/hr IV Q8 [facility] Last Infusion: 05/28/20 06:36 Dose: Infused Documented by: Sodium Chloride () 250 mls @ 15 mls/hr IV .[id number] PRN PRN Reason: Saline Flush Last Infusion: 05/27/20 16:31 Dose: 0 mls/hr Documented by: Sodium Chloride () 250 mls @ 15 mls/hr IV .[id number] PRN PRN Reason: Additional IVPB Infusion Metoprolol Tartrate (Lopressor (Beta Sahara)) 12.5 mg PO BID [facility] Last Admin: 05/27/20 21:38 Dose: 12.5 mg Documented by: Morphine Sulfate () 2 - 4 mg IV Q2H PRN PRN PRN Reason: Pain Score 4-05/30 Last Admin: 05/25/20 01:38 Dose: 2 mg Documented by: Morphine Sulfate () 2 - 4 mg IV Q2H PRN PRN PRN Reason: Pain Score 4-1010 Last Admin: 05/26/20 02:47 Dose: 4 mg Documented by: Nicotine (Nicoderm Cq (Pbkc)) 21 mg TRANSDERM. DAILY [facility] Last Admin: 05/27/20 08:53 Dose: 21 mg Documented by: Ondansetron HCl (Zofran) 4 mg IV Q6H PRN PRN PRN Reason: NAUSEA Last Admin: 05/26/20 15:57 Dose: 4 mg Documented by: Oxycodone HCl (Oxyir) 5 mg PO Q4H PRN PRN PRN Reason: Pain Score 6-10/10 Last Admin: 05/27/20 08:56 Dose: 5 mg Documented by: Pantoprazole Sodium (Protonix) 20 mg PO BID [facility] Last Admin: 05/27/20 21:39 Dose: 20 mg Documented by: Sodium Chloride () 10 - 40 ml IV UD PRN PRN Reason: SALINE FLUSH Last Admin: 05/28/20 05:12 Dose: 10 ml Documented by: Medical Necessity - Tobacco Use Smoking Status: Current every day smoker Tobacco Use: Chew Assessment/Plan All Active Problems (Last Updated 05/23/20 @ 22:[address] Jon Fields MD) Belching (Acute) Ventral hernia (Acute) Colonic thickening (Acute) PVC (premature ventricular contraction) (Acute) Tachycardia (Acute) Low grade fever (Acute) S/P colectomy (Acute) Denies previous medical history (Acute) 65-year-old male status post right hemicolectomy 1. 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 Patient was notified of pathology. Patient will have outpatient oncology follow-up. 2. Patient is starting to have bowel movements and he is tolerating full liquids. I will advance him to a regular diet and discharge today. Mohinder Shipman MD Pager: [facility] [address] [place] [address] [place] [address] Office:
--- NOTE | 2020-05-28 07:53 | PCM.DC ---
- Discharge Diagnoses Current Active Problems: Current Active and Chronic Problems (Last Updated 05/23/20 @ 22:[address] Jon Fields MD) Colonic thickening (Acute) PVC (premature ventricular contraction) (Acute) Tachycardia (Acute) Low grade fever (Acute) S/P colectomy (Acute) Denies previous medical history (Acute) You will use the following diet at home:: Regular Your liquids should be the consistency of: Regular/Thin Discharge Activity: No Restrictions, May Shower Lifting Restrictions: 20 lbs for 3 weeks Call your doctor if your incision/area has: Continuous Slow Oozing, Sudden Increased Bleeding, Increased Pain/ Swelling, Increased Redness, Foul Smelling Discharge, Swelling at the incision site Call your doctor if you observe: Fever of 101 or Higher Allergies/Adverse Reactions: Allergies Penicillins Allergy (Verified 05/21/20 12:30) unknown Medications to take at Discharge Famotidine 20 mg PO DAILY 05/21/20 Acetaminophen [Tylenol Tablet] 650 mg PO Q6H PRN PRN tablet 05/28/20 Docusate Sodium [Colace] 100 mg PO BID 10 Days #20 cap 05/28/20 Oxycodone [Oxyir] 5 mg PO Q4H PRN PRN 5 Days #30 tablet 05/28/20 The following prescriptions were given: Docusate Sodium [Colace] 100 mg PO BID 10 Days #20 cap Transmission Status: Pending to [facility] Oxycodone [Oxyir] 5 mg PO Q4H PRN PRN 5 Days #30 tablet PRN Reason: Pain Score 6-10/10 Transmission Status: Sent to [facility] Test Results: Test results from this visit will be discussed in further detail at your follow-up appointment, if applicable. Please Follow Up With: Mohinder Shipman MD When: Please call to schedule 2 week follow up appointment. [phone]
--- NOTE | 2020-05-28 07:54 | PCM.DC.SUM ---
Discharge Date and Diagnosis - Problem List Patient Problems: Active and Suspected Problems (Last Updated 05/23/20 @ 22:[address] Jon Fields MD) Colonic thickening (Acute) PVC (premature ventricular contraction) (Acute) Tachycardia (Acute) Low grade fever (Acute) S/P colectomy (Acute) Denies previous medical history (Acute) Date of Admission: 05/21/20 Date of Discharge: 05/28/20 - Primary Discharge Diagnosis Acute Problems: Active Problems (Last Updated 05/23/20 @ 22:[address] Jon Fields MD) Colonic thickening (Acute) PVC (premature ventricular contraction) (Acute) Tachycardia (Acute) Low grade fever (Acute) S/P colectomy (Acute) Denies previous medical history (Acute) Hospital Course and Treatment Imaging Results: Clinical Impression(s) from Imaging Studies Abdomen/Pelvis CT 05/21/20 15:05 IMPRESSION: Distal small bowel dilatation due to a inflammatory mass lesion in the region of the terminal ileum/cecum with the a dilated retroareolar cecal appendix. A mucocele should be ruled out. Electronically Signed: Ulises Reyes, at 15:45 EDT , Service support , KUB X-Ray 05/21/20 19:18 IMPRESSION: NG tube with its tip overlying the gastric air bubble. Electronically Signed: Shan Villegas DO at 20:13 EDT Tel [phone], Service support , Hospitalist Operations: colectomy Procedures: None Summary of Care Provided: The patient is a 65 year old M who was admitted with abdominal pain and nausea and vomiting. The patient was found to have a colon mass during surgery and he had a right hemicolectomy. Patient had a prolonged postoperative course until he was able to tolerate diet with no nausea or vomiting and started passing flatus and bowel movements. Once he was doing this his diet was advanced and he was discharged home in stable condition. 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 Patient will be referred to oncology at his follow-up visit with me. Patient Problems: Active and Suspected Problems (Last Updated 05/23/20 @ 22:[address] Jon Fields MD) Colonic thickening (Acute) PVC (premature ventricular contraction) (Acute) Tachycardia (Acute) Low grade fever (Acute) S/P colectomy (Acute) Denies previous medical history (Acute) - Physical Exam Vitals/I&O's: Vital Signs Temp Pulse Resp BP Pulse Ox 98.1 F 77 18 125/94 H 95 05/28/20 04:38 05/28/20 05:30 05/28/20 04:38 05/28/20 04:38 05/28/20 04:38 Oxygen Flow Rate (L/min) 2 Oxygen Delivery Method Room Air Weight: 165 lb 1.6 oz Body Mass Index (BMI) 29.2 Intake and Output for Last 24 Hours 05/26/20 05/27/20 05/28/20 23:59 23:59 23:59 Intake Total 1834.5 / 1834.5 2676.50 / 2676.50 563.5 / 563.5 Balance 1834.5 / 1834.5 2676.50 / 2676.50 563.5 / 563.5 General: Alert, Oriented x3 Neck: No JVD Lungs: Normal air movement Cardiovascular: Regular rate, Regular Rhythm Abdomen: Soft, Non Tender, Non-Distended Laboratory Results 05/27/20 07:54: WBC 8.0, RBC 5.20, Hgb 15.2, Hct 46.6, MCV 89.6, MCH 29.2, MCHC 32.6, RDW Std Deviation 44.7 H, RDW Coeff of Gregory 13.5, Plt Count 370, MPV 9.8, Immature Gran % (Auto) 1.100 H, Neut % (Auto) 71.6 H, Lymph % (Auto) 15.9 L, [place] % (Auto) 9.9, Eos % (Auto) 0.9, Baso % (Auto) 0.6, Absolute Neuts (auto) 5.7, Absolute Lymphs (auto) 1.27, Nucleated RBC % 0 05/27/20 07:54: Sodium 140, Potassium 3.3 L, Chloride 105, Carbon Dioxide 26.0, Anion Gap 9, BUN 17, Creatinine 0.81, Estim Creat Clear Calc 74.15, Est GFR (MDRD) Af Amer 123, Est GFR (MDRD) Non-Af 102, BUN/Creatinine Ratio 20.9 H, Glucose 109 H, Calcium 8.6, Phosphorus 2.9, Magnesium 2.2 Current Medications Acetaminophen (Tylenol) 650 mg PO Q6H PRN PRN PRN Reason: Pain Score 1-1010 Last Admin: 05/27/20 08:56 Dose: 650 mg Documented by: Docusate Sodium (Colace) 100 mg PO BID [facility] Last Admin: 05/27/20 21:39 Dose: 100 mg Documented by: Enoxaparin Sodium (Lovenox) 40 mg SC DAILY [facility] Last Admin: 05/27/20 08:53 Dose: 40 mg Documented by: Ciprofloxacin (Cipro) 400 mg in 200 mls @ 200 mls/hr IV Q12 [facility] Last Infusion: 05/27/20 23:45 Dose: Infused Documented by: Metronidazole (Flagyl) 500 mg in 100 mls @ 100 mls/hr IV Q8 [facility] Last Infusion: 05/28/20 06:36 Dose: Infused Documented by: Sodium Chloride () 250 mls @ 15 mls/hr IV .[id number] PRN PRN Reason: Saline Flush Last Infusion: 05/27/20 16:31 Dose: 0 mls/hr Documented by: Sodium Chloride () 250 mls @ 15 mls/hr IV .[id number] PRN PRN Reason: Additional IVPB Infusion Metoprolol Tartrate (Lopressor (Beta [place])) 12.5 mg PO BID [facility] Last Admin: 05/27/20 21:38 Dose: 12.5 mg Documented by: Morphine Sulfate () 2 - 4 mg IV Q2H PRN PRN PRN Reason: Pain Score 4-1010 Last Admin: 05/25/20 01:38 Dose: 2 mg Documented by: Morphine Sulfate () 2 - 4 mg IV Q2H PRN PRN PRN Reason: Pain Score 4-10/10 Last Admin: 05/26/20 02:47 Dose: 4 mg Documented by: Nicotine (Nicoderm Cq (Pbkc)) 21 mg TRANSDERM. DAILY [facility] Last Admin: 05/27/20 08:53 Dose: 21 mg Documented by: Ondansetron HCl (Zofran) 4 mg IV Q6H PRN PRN PRN Reason: NAUSEA Last Admin: 05/26/20 15:57 Dose: 4 mg Documented by: Oxycodone HCl (Oxyir) 5 mg PO Q4H PRN PRN PRN Reason: Pain Score 6-10/10 Last Admin: 05/27/20 08:56 Dose: 5 mg Documented by: Pantoprazole Sodium (Protonix) 20 mg PO BID ROSELIA Last Admin: 05/27/20 21:39 Dose: 20 mg Documented by: Sodium Chloride () 10 - 40 ml IV UD PRN PRN Reason: SALINE FLUSH Last Admin: 05/28/20 05:12 Dose: 10 ml Documented by: Discharge Activity: No Restrictions, May Shower Call your doctor if your incision/area has: Continuous Slow Oozing, Sudden Increased Bleeding, Increased Pain/ Swelling, Increased Redness, Foul Smelling Discharge, Swelling at the incision site Call your doctor if you observe: Fever of 101 or Higher Home Medications: Medications to take at Discharge Famotidine 20 mg PO DAILY 05/21/20 Acetaminophen [Tylenol Tablet] 650 mg PO Q6H PRN PRN tablet 05/28/20 Docusate Sodium [Colace] 100 mg PO BID 10 Days #20 cap 05/28/20 Oxycodone [Oxyir] 5 mg PO Q4H PRN PRN 5 Days #30 tablet 05/28/20 Following Prescriptions Were Given to Patient: Docusate Sodium [Colace] 100 mg PO BID 10 Days #20 cap Transmission Status: Pending to [facility] Oxycodone [Oxyir] 5 mg PO Q4H PRN PRN 5 Days #30 tablet PRN Reason: Pain Score 6-10/10 Transmission Status: Sent to [facility] Primary Care Physician: Care Physician,No Primary [Primary Care Provider] - Please Follow Up With: Mohinder Shipman MD When: Please call to schedule 2 week follow up appointment. [phone] Medical Necessity - Tobacco Use Smoking Status: Current every day smoker Tobacco Use: Chew Meaningful Use Info Meaningful Use Diagnoses (Choose all that apply): None applicable
[2020-05-28 08:00] VITALS: PULSE 85
[2020-05-28 08:28] VITALS: PULSE 83
[2020-05-28] MEDS: Docusate Sodium 100 MG Capsule PO (08:28)
[2020-05-28] MEDS: Metoprolol Tartrate 25 MG Tablet 12.5 MG PO (08:28)
[2020-05-28] MEDS: Pantoprazole Sodium 20 MG Tablet PO (08:29)
[2020-05-28] MEDS: Enoxaparin 40 MG/0.4 ML Syringe SC (08:30)
[2020-05-28 08:50] VITALS: BP 136/87; PULSE 83; RESP 16; TEMP 37.5; O2SAT 94
[2020-05-28] MEDS: Ciprofloxacin 400 MG/200 ML BAG 200 MG IV (10:12)
[2020-05-28 13:20] VITALS: BP 148/97; PULSE 81; RESP 18; TEMP 36.7; O2SAT 97
--- NOTE | 2020-05-28 15:12 | PHA.DC.MR ---
Pharmacy Service has performed discharge medication reconciliation for this patient. The patient's discharge medication list was reviewed for discrepancies and discrepancies were resolved. Home Medications Famotidine 20 mg PO DAILY 05/21/20 Acetaminophen [Tylenol Tablet] 650 mg PO Q6H PRN PRN tab 05/28/20 Docusate Sodium [Colace] 100 mg PO BID 10 Days #20 cap 05/28/20 Metoprolol Tartrate [Lopressor (beta andrew)] 12.5 mg PO BID #30 tab 05/28/20 Oxycodone [Oxyir] 5 mg PO Q4H PRN PRN 5 Days #30 tab 05/28/20 Pantoprazole Sodium [Protonix] 20 mg PO BID #30 tab 05/28/20
== END 2020-05-28 13:50 | disposition home or self-care (01) | DRG 330 ==
LOC: ED 14:17 → MS3 21:13
PROVIDERS: Hospitalist; Student in an Organized Health Care Education/Training Program; Surgery; Admitting Provider Surgery; Emergency Provider Emergency Medicine; Visit Provider Surgery
PROC: 0DTF0ZZ Resection of Right Large Intestine, Open Approach (ICD-10-PCS; CPT 44205; principal; 2020-05-22 08:15)
DX: C18.0 Malignant neoplasm of cecum (principal); C77.9 Secondary and unspecified malignant neoplasm of lymph node, unspecified; I49.3 Ventricular premature depolarization; F17.220 Nicotine dependence, chewing tobacco, uncomplicated; R00.8 Other abnormalities of heart beat; R00.0 Tachycardia, unspecified; E87.8 Other disorders of electrolyte and fluid balance, not elsewhere classified; I10 Essential (primary) hypertension
CPT/HCPCS: 36415; 74018; 74177; 80048; 80076; 82378; 83690; 83735; 84100; 84439; 84443; 84481; 84484; 85025; 88309; 88341; 88342; 93005; 93306; 99251; 99285; J7030; J7050; J7120; Q9957; Q9967; A4216; C1760; G0463; J0744; J2405

== ENCOUNTER 2020-09-08 13:00 | Day surgery (SDC) | payer OTHER, SELFPAY ==
[2020-06-03 15:37] VITALS: BMI 26.9
--- NOTE | 2020-09-06 17:55 | PCM.HP.BLA ---
History and Physical Date of Admission: 09/08/20 PATIENT NAME: Iron Combs. DIAGNOSIS: Colon cancer (cecum / ascending colon) need for portacath Mr. Combs is a 65 year old man with recently diagnosed colon cancer, undergoing chemotherapy. He had a portacath placed (06/11/2020) via right subclavian vein with appropriate placement as seen on postprocedure CXR. However, now the portacath tip has migrated to the right subclavian vein proximally. He has no fever, headaches, cough, sore throats or shortness of breath. No nausea, vomiting, diarrhea or muscle pain. This appetite is good weight remains stable. No evidence of neuropathy. PAST MEDICAL HISTORY History of Colon adenocarcinoma (HCC) GERD (gastroesophageal reflux disease) Hypertension Irregular heart rhythm PAST SURGICAL HISTORY LAPAROSCOPIC HEMICOLECTOMY MEDICATIONS: levoFLOXacin (LEVAQUIN) 500 mg tablet Take 1 tablet by mouth once daily. cholecalciferol, vitamin D3, (VITAMIN D3 ORAL) Take 500 mg by mouth once daily. pantoprazole DR (PROTONIX) 20 mg tablet Take 20 mg by mouth once daily. OLANZapine (ZYPREXA) 5 mg tablet Take 1 tablet by mouth daily at bedtime for 10 days. ascorbic acid (VITAMIN C ORAL) Take 500 mg by mouth once daily. Lactobacillus acidophilus (PROBIOTIC ORAL) Take by mouth once daily. Pt unsure of dosage docusate sodium (STOOL SOFTENER) 100 mg capsule Take 100 mg by mouth twice daily as needed for Constipation. oxyCODONE ir (OXYIR) 5 mg capsule Take 5 mg by mouth every 4 hours as needed for Pain. metoprolol tartrate, short acting, (LOPRESSOR) 25 mg tablet nicotine (NICODERM) 14 mg/24 hr Apply 1 Patch as directed every 24 hours. ALLERGIES Penicillins Dystonia FAMILY HISTORY Hypertension Mother Dementia COPD Father SOCIAL HISTORY Social History Tobacco Use Smoking status: Never Smoker Smokeless tobacco: Former User Types: Chew Substance Use Topics Alcohol use: Not Currently Drug use: Never REVIEW OF SYSTEMS: CONSTITUTIONAL: No fevers, chills, nightsweats, unintended weight loss HEENT: Denies frequent or severe heaches, + nasal congestion/sinus symptoms, problematic allergy problems. EYES: No diplopia or blurry vision. + Watery eyes CARDIOVASCULAR: No chest pain, dyspnea, palpitations, orthopnea, PND, ankle edema. PULM: No dyspnea, unexplained cough. GI: No dysphagia/odynophagia, problematic reflux, constipation, diarrhea, changes in stool habits, hematochezia, melena. : No new urinary complaints, including dysuria, gross hematuria or pyuria. NEURO: No new balance problems, peripheral weakness/paresthesias or numbness of concern. MUSC-SKEL: No new joint pain, swelling, or erythema. PSY: No concerns regarding depression, anxiety or panic. INTEGUMENTARY: No new skin changes (rash, new or changing mole, new growth) PHYSICAL EXAMINATION: 65-year-old well-nourished well-developed gentleman in no acute distress BP 149/88[left arm regular cuff, auto[ Pulse 73 Temp (Src) 97.6 (Tympanic) Resp 24 Ht 5' 3.5 (1.61m) Wt 159 lb (72.1kg) SpO2 96% BMI 27.72 kg/(m^2). HEENT: Head is normocephalic, atraumatic. Sclerae white, conjunctivae pink. PEERL. EOMs are intact. Oropharynx is benign. LYMPHATICS: There is no palpable adenopathy in the neck, supraclavicular region, axillae, or groin. LUNGS: Lungs are clear to percussion and auscultation. HEART: Heart is normal without murmurs, gallops, or rubs. ABDOMEN: Soft and nontender without organomegaly. Well-healed abdominal scar. No masses can be palpated. EXTREMITIES: Are without edema. NEUROLOGIC: Exam is physiologic, no sensory deficit. ASSESSMENT: 65-year-old gentleman with stage IIIc colon cancer, s/p resection and now is undergoing treatment. He is requested by his oncologist for portacath placement PLAN: I have discussed placement of portacath with patient. He understands the procedure as he has gone through this already. I have counseled patient as to the risks of the procedure, including but not limited to: infection, bleeding, injury to any blood vessels/nerves, thromboses of the blood vessels, line sepsis, non functioning of the port, wound infection, scar tissue, etc. - he understands. The patient was offered a surgery/procedure. The provider and patient have discussed in detail the risk of exposure to and/or potential harm posed by the COVID-19 virus with having a surgery/procedure at this time versus the risk of delaying the surgery/procedure. It is not possible to know either the risk of delaying the surgery or procedure or chance of getting an infection with perfect accuracy, but a joint decision was made between the patient and the provider to proceed at this time with the scheduled surgery/procedure. He agrees to proceed. I have answered all his questions and he has no further questions.
[2020-09-08] VITALS (7 sets, daily range): BP systolic 118–148; BP diastolic 72–105; PULSE 64–78; RESP 14–16; TEMP 36.2–36.8; O2SAT 97–99; BMI 27.4
[2020-09-08] MEDS: Lactated Ringers 1,000 ML 75 ML IV (13:34)
[2020-09-08] MEDS: Lidocaine 1%/Epi 1:200 (30ml) 30 ML AMPUL (15:15)
--- NOTE | 2020-09-08 15:49 | OP.PCM_ITS ---
Report of Operation Date of Procedure: 09/08/20 Pre-Operative Diagnosis: need for chemotherapy for colon cancer, here for placement of portacath Post-Operative Diagnosis: same Surgery/Procedure Performed:: placement of permanent indwelling tunnelled catheter in the left subclavian vein with subcutaneous port Description of Surgical Findings:: normal left subclavian anatomy to the SVC Type of Anesthesia:: Local MAC Anesthesiologist: Mindi Howard Specimen's removed: none Estimated Blood Loss (mL): < 10 ml Fluids Replaced: 800 ml RL Description of Procedure: After informed consent was given, the patient was brought to the Operating Room. Appropriate time out protocol was followed. The patient was then placed in the supine position. The patient was then given IV conscious sedation for anesthesia. The patient?s upper chest and neck were then prepped with a surgical skin preparation and sterile surgical drapes were placed. After proper landmarks were ascertained, the skin at the upper left chest area was then infiltrated with 1% xylocaine with epinephrine. A needle trocar was then inserted into the left subclavian vein and there was good aspiration of venous blood. A wire was then threaded into the needle trocar and this was visualized under fluoroscopy to ensure that the wire was in the left subclavian vein. Once this was done, then the needle trocar was removed. A small skin tam was made with an 11 blade knife at the wire entrance site. The dilator with the intr oducer sheath attached was then placed over the wire into the left subclavian vein via the Seldinger technique and this was visualized under fluoroscopy. The dilator and sheath were in proper position as visualized by fluoroscopy in real time. The wire and dilator were then removed. The catheter was then threaded into the introducer sheath and was positioned with its tip at the junction of the superior vena cava and the right atrium as visualized under fluoroscopy in real time. I personally reviewed all of the above fluoroscopic images and noted that the positions of the wire and catheter were correct so that the next step could be conducted. The catheter was flushed with a heparin saline mixture prior to placement. A subcutaneous pocket was then created caudad to the catheter insertion site. A transverse skin incision was made after the skin and subcutaneous tissues were infiltrated with local anesthetic. Blunt dissection was then used to create a space large enough for placement of the subcutaneous port. Hemostasis was carefully controlled with electrocautery. The port was sutured to the subcutaneous fascia using vicryl suture at three sites. The catheter was then tunneled into the subcutaneous pocket. The excess catheter was transected. The catheter was then attached to the subcutaneous port using log truck driver?s guidelines. The port was then placed in the subcutaneous pocket and the sutures were ligated. The subdermal incisional sites were reapproximated with interrupted vicryl suture. The skin was reapproximated with monocryl suture in a subcuticular fashion. Cavilon and steristrips were used for reinforcement of the skin closure and a sterile opsite dressing was applied. Sponge, needle, and instrument count were verified and correct at the time of skin closure. The patient was brought to the Recovery Room in stable condition Grafts/Implants Used: PowerPort Lot [id number], exp 2022-02-17 - Complications none noted - Admit VTE Documentation VTE Present on Admission: Yes VTE Mechan Device Prophylaxis: SCD's
--- NOTE | 2020-09-08 16:01 | PCM.DC.POR ---
Discharge Diet: No Restrictions Discharge Activity: Return to Normal Activity, May not drive while taking narcotic pain medications. Call your doctor if your incision/area has: Continuous Slow Oozing, Foul Smelling Discharge Additional Instructions: Recommended pain control regimen - May take 600 mg ibuprofen (Motrin) and then in 3-4 hours, may take 650 mg acetaminophen (Tylenol), then in 3-4 hours may take 600 mg ibuprofen, then in 3-4 hours may take 650 mg acetaminophen and so on for 2-3 days May take narcotic pain medication for pain that is not controlled by above and at night for comfort through the night Leave dressings in place - they can be removed by the oncology nurses when you receive your chemotherapy May get dressings wet in shower - do not scrub in the area and pat dry Do not soak - no tub baths/swimming May apply ice to area for comfort as tolerated. The right sided dressing may be removed in about 5 days, leave the steristrips on, they will fall off on their own. No follow up required, if you have any problems, please call the Surgery clinic or [facility] calciner operator Allergies/Adverse Reactions: Allergies Penicillins Allergy (Verified 09/04/20 11:33) unknown Medications to take at Discharge pantoprazole 20 mg tablet,delayed release 20 mg PO PRN PRN tab 06/03/20 Cholecalciferol (Vitamin D3) [Vitamin D3] 125 mcg PO DAILY 09/04/20 Potassium Chloride [Klor-Con] 20 meq PO DAILY 09/04/20 Hydrocodone Bitart/Apap 5-325 [[place] 5MG-325MG] 1 tab PO Q12H PRN PRN 3 Days #6 tab 09/08/20 The following prescriptions were given: Hydrocodone Bitart/Apap 5-325 [[place] 5MG-325MG] 1 tab PO Q12H PRN PRN 3 Days #6 tab PRN Reason: Pain Transmission Status: Received by [facility] Primary Care Physician: Esperanza Monroe MD [Primary Care Provider] - Test Results: Test results from this visit will be discussed in further detail at your follow-up appointment, if applicable.
--- NOTE | 2020-09-08 16:05 | RAD_ITS ---
STUDY: X-RAY CHEST REASON FOR EXAM: Male, 65 years old. post op port placement TECHNIQUE: Single AP portable view of the chest. COMPARISON: None. FINDINGS: Left subclavian chest port. The lungs are clear and expanded. Slight elevation right hemidiaphragm. Normal size heart. Normal mediastinum and christina. Normal visualized pulmonary arteries. Normal visualized aortic arch and descending thoracic aorta. Normal visualized thoracic spine. Normal visualized ribs, clavicles, and shoulders. There is no demonstrated abnormality of the visualized soft tissue structures of the upper abdomen. RAD/CXR for Line Placement IMPRESSION: No active disease. Electronically Signed: Pérez Chan MD at 16:30 EST Tel , Service support ,
== END 2020-09-08 17:22 | disposition home or self-care (01) ==
LOC: SDC 13:00 → AC 13:01
PROVIDERS: PCP Internal Medicine; Referring Provider Surgery; Visit Provider Surgery
PROC: (CPT 36561; principal; 2020-09-08 14:10)
DX: C18.2 Malignant neoplasm of ascending colon (principal); C18.0 Malignant neoplasm of cecum; Z45.2 Encounter for adjustment and management of vascular access device; K21.9 Gastro-esophageal reflux disease without esophagitis; I10 Essential (primary) hypertension; Z20.822 Contact with and (suspected) exposure to COVID-19; Z79.899 Other long term (current) drug therapy; Z87.891 Personal history of nicotine dependence
CPT/HCPCS: 00532; 36561; 71045; 77001; 87426; C9803; J7050; J7120; C1788

== ENCOUNTER 2021-05-25 09:08 | Day surgery (SDC) | payer MEDICARE, OTHER, SELFPAY ==
[2021-05-25] VITALS (7 sets, daily range): BP systolic 117–139; BP diastolic 69–89; PULSE 52–72; RESP 16–18; TEMP 36.2–36.6; O2SAT 96–100; BMI 27.9
--- NOTE | 2021-05-25 09:38 | HP.PCM_ITS ---
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 Is patient in pain?: No Allergies Penicillins Allergy (Verified 05/10/21 09:53) unknown Medications cholecalciferol (vitamin D3) 125 mcg PO DAILY 09/04/20 [History Confirmed 01/07/21] lactobacillus combination no.8 3 billion cell capsule 3,000 mmu cells PO DAILY 01/07/21 [History Confirmed 01/07/21] mecobalamin (vitamin B12) 5,000 mcg lozenge 5,000 mcg PO DAILY 01/07/21 [History Confirmed 01/07/21] pyridoxine (vitamin B6) 500 mg tablet 500 mg PO DAILY 01/07/21 [History Confirmed 01/07/21] broccoli flower 500 mg tablet mg PO 05/10/21 [History Confirmed 05/10/21] zinc 50 mg tablet 50 mg PO DAILY 05/10/21 [History Confirmed 05/10/21] PFSH Medical History Colon cancer Denies previous medical history Hypertension Surgical History History of appendectomy History of partial colectomy Family History Mother Thyroid disorder Sister Cervical cancer Social History Smoking Status: Former smoker alcohol intake: current alcohol intake frequency: a few times a month Alcohol type: beer substance use type: does not use what type of physical activity do you participate in: walking HPI HPI HPI: ATUL ALBERT, is a 66 M who presents to the office today for follow-up. Patient has history of colon cancer 1 year ago with resection of the right colon. Patient had chemotherapy and reports he is having no abdominal pain or blood in his stool. He had a recent CT in January which was normal. He is going for a CEA today. ROS General General: No weight change, appetite, fatigue, colon cancer, breast cancer or weakness HEENT HEENT: No difficulty swallowing, eye injury, eye surgery, swollen glands or hoarseness Endo Endocrine: No thyroid disease, diabetes mellitus, thyroid cancer, Hair loss, heat intolerance or cold intolerance Skin Skin: No rash or changing moles Breast Breast: No left breast lump, right breast lump, nipple discharge, breast pain, abnormal mammogram, abnormal US or breast enlargement Musc Musculoskeletal: No back problems, arthritis, rheumatoid arthritis, gout or joint pain Cardio Cardiovascular: No murmur, pacemaker, heart disease, atrial fibrillation, high blood pressure, heart attack, heart stent, palpitations, shortness of breat with exertion or chest pain Psych Psychiatric: No depression, anxiety or hearing voices Resp Respiratory: No shortness of breath, No sleep apnea, No cough, No COPD, No asthma, No emphysema and No wheezing Gastro Gastrointestinal: No abdominal pain, No nausea or vomiting, No diarrhea, No constipation, No blood in stool, No acid reflux, No hemorrhoids, No ulcers, No gallbladder problem and No black,tarry stools [place] Hematologic: No blood thinners, No blood disorders, No bleeding, No anemia and No blood clots Neuro Neurologic: No system reviewed and no additional complaints, except as documented, No as per HPI, No abnormal gait, No abnormal hearing, No abnormal movements, No abnormal speech, No behavioral changes, No burning sensations, No confusion, No convulsions, No disequilibrium, No dizziness, No localized weakness, No frequent falls, No headache(s), No lack of coordination, No loss of vision, No memory loss, Yes numbness, No other visual disturbances, No radicular pain, No restless legs, No sensory deficit, No syncope, Yes tingling, No tremor(s), No weakness and No other Exam Const General: cooperative Orientation: alert and oriented x3 HENMT Head: normal to inspection Neck Neck: normal visual inspection and full ROM Chest Chest palpation & inspection: normal inspection of the chest Resp Effort & Inspection: normal respiratory effort Auscultation: clear to auscultation bilaterally Cardio Rate: regular rate Rhythm: regular rhythm GI Inspection: non-distended Palpation: soft and nontender Skin General: no rashes or lesions noted Neuro General: patient alert and patient oriented x3 Extrem General: full ROM Psych Appearance: grossly normal Mental Status: mental status grossly normal Assessment and Plan Assessment and Plan (1) Colon cancer: Status: Chronic Qualifiers: Colon location: ascending Qualified Code(s): C18.2 - Malignant neoplasm of ascending colon Plan - Dr. Mohinder Shipman MD: Patient has history of colon cancer. Patient had right hemicolectomy May 2020 and is here for surveillance colonoscopy. Patient reports no blood in the stool or abdominal pain. Patient underwent adjuvant chemotherapy. I explained endoscopy in detail to the patient. I explained the risks including but not limited to stroke or heart attack with anesthesia, perforation of the GI tract, bleeding, infection. I explained that any of these could necessitate further emergency surgery. The patient understands and all questions were answered sufficiently. The patient wishes to proceed with procedure. Mohinder Shipman MD Pager: [facility] [address] [place] [address], [address] [place] [address] Office: I have re-examined the patient. There are no clinical changes since date of exam.
[2021-05-25] MEDS: Lactated Ringers 1,000 ML 100 ML IV (09:57)
--- NOTE | 2021-05-25 10:15 | COLBX_PTH ---
PATIENT: ATUL ALBERT LOC: EN U#:[id number] AGE/SX: 66/M ROOM: RE05/25/[address]: Dr. Mohinder Shipman MD : 1955 BED: DIS: 05/25/2021 SPEC #: [id number] RECD: 05/25/21 11:41 STATUS: MAEVE HERMOSILLO #: [id number] GLORIA: 05/25/21 10:[address]: Mohinder Shipman DEPT: SURGICAL PATHOLOGY RECD BY: Marichuy Em ENTERED: 05/25/21 13:19 SP TYPE: COLON BX OTHR DR: Dr. Esperanza Monroe MD Tissues: Sigmoid colon biopsy Procedures: Surgery Specimen Level IV HEADER OPERATION: Colonoscopy (MAC) PRE-OP DIAGNOSIS: Colon cancer TISSUE SUBMITTED: Sigmoid polyp at 25 cm MICROSCOPIC DIAGNOSIS Sigmoid colon polyp at 25 cm, biopsy: Tubulovillous adenoma. AM:jayy 05/26/2021 MICROSCOPIC DESCRIPTION Slides are reviewed. GROSS DESCRIPTION Received in fixative is one container labeled with the patient's name and designated sigmoid polyp at 25 cm. The specimen consists of a piece of odonnell-pink polyp measuring 1.7 x 1.2 x 1 cm. This piece is bisected. Also present in the container are multiple pieces of odonnell-pink soft tissue measuring in aggregate 1.5 x 1 x 0.3 cm. The largest piece is bisected. The entire specimen is submitted in one cassette. / SJ:jayy 05/25/21 TC:1 CPT: 23871
--- NOTE | 2021-05-25 10:17 | OP.CCLET_ITS ---
05/25/2021 Esperanza Monroe [facility] [address] [place] [address] Re : Colonoscopy procedure for Iron Combs Dear Dr. Monroe This procedure was performed on Tuesday, May 25, 2021. My impressions and recommendations are as follows: Impressions : - One large polyp in the sigmoid colon, removed with a hot snare. Resected and retrieved. - The examination was otherwise normal on direct and retroflexion views. Recommendations : - Discharge patient to home. - Resume previous diet. - Continue present medications. - Await pathology results. - Repeat colonoscopy in 1 year for surveillance based on pathology results. My findings are described in the full procedure note, which is enclosed. If I can be of further assistance, please feel free to contact me at Doctor phone number(s): , Work: . Sincerely, Mohinder Shipman MD 05/25/2021 10:16:40 AM This report has been signed electronically.
--- NOTE | 2021-05-25 10:17 | OP.COLON_ITS ---
Patient Name: Iron Combs Procedure Date: 05/25/2021 9:44 AM Date of : 1955 Age: 66 Procedure: Colonoscopy Indications: High risk colon cancer surveillance: Personal history of colon cancer Providers: Mohinder Shipman MD Referring MD: Esperanza Monroe Medicines: Monitored Anesthesia Care Patient Profile: This is a 66 year old male. Refer to note in patient chart for documentation of history and physical. Last Colonoscopy: 1 year ago. Complications: No immediate complications. Estimated blood loss: Minimal. Procedure: Pre-Anesthesia Assessment: - Prior to the procedure, a History and Physical was performed, and patient medications and allergies were reviewed. The patient's tolerance of previous anesthesia was also reviewed. The risks and benefits of the procedure and the sedation options and risks were discussed with the patient. All questions were answered, and informed consent was obtained. Prior Anticoagulants: The patient has taken no previous anticoagulant or antiplatelet agents. After reviewing the risks and benefits, the patient was deemed in satisfactory condition to undergo the procedure. After I obtained informed consent, the scope was passed under direct vision. Throughout the procedure, the patient's blood pressure, pulse, and oxygen saturations were monitored continuously. The pediatric colonoscope was introduced through the anus and advanced to the ileocolonic anastomosis. The colonoscopy was performed without difficulty. The patient tolerated the procedure well. The quality of the bowel preparation was good. Scope In: 9:59:14 AM Scope Withdrawal Time 0 hours 7 minutes 20 seconds Scope Out: 10:13:55 AM Total Procedure Duration Time 0 hours 14 minutes 41 seconds Findings: A large polyp was found in the sigmoid colon. The polyp was pedunculated. The polyp was removed with a hot snare. Resection and retrieval were complete. The exam was otherwise without abnormality on direct and retroflexion views. Impression: - One large polyp in the sigmoid colon, removed with a hot snare. Resected and retrieved. - The examination was otherwise normal on direct and retroflexion views. Recommendation: - Discharge patient to home. - Resume previous diet. - Continue present medications. - Await pathology results. - Repeat colonoscopy in 1 year for surveillance based on pathology results. Procedure Code(s): --- Professional --- 07385, Colonoscopy, flexible; with removal of tumor(s), polyp(s), or other lesion(s) by snare technique Diagnosis Code(s): --- Professional --- Z85.038, Personal history of other malignant neoplasm of large intestine D12.5, Benign neoplasm of sigmoid colon CPT copyright 2017 [employer]. All rights reserved. The codes documented in this report are preliminary and upon certified medical coder review may be revised to meet current compliance requirements. Mohinder Shipman MD 05/25/2021 10:16:40 AM This report has been signed electronically. Number of Addenda: 0 Note Initiated On: 05/25/2021 9:44 AM
== END 2021-05-25 11:00 ==
LOC: EN 09:09 → AC 09:09
PROVIDERS: PCP Internal Medicine; Referring Provider Internal Medicine; Visit Provider Surgery
PROC: 0DJD8ZZ Inspection of Lower Intestinal Tract, Via Natural or Artificial Opening Endoscopic (ICD-10-PCS; CPT 45378; principal; 2021-05-25 10:10)
DX: D12.5 Benign neoplasm of sigmoid colon (principal); Z85.038 Personal history of other malignant neoplasm of large intestine; Z88.0 Allergy status to penicillin; Z90.49 Acquired absence of other specified parts of digestive tract; Z87.891 Personal history of nicotine dependence
CPT/HCPCS: 45385; 87426; 88305; J7120; J2405

== ENCOUNTER 2022-05-31 09:46 | Day surgery (SDC) | payer MEDICARE, OTHER, SELFPAY ==
[2022-05-31] VITALS (7 sets, daily range): BP systolic 105–132; BP diastolic 69–97; PULSE 65–78; RESP 16–108; TEMP 37–37.3; O2SAT 93–99; BMI 28.3
--- NOTE | 2022-05-31 | COLBX_PTH ---
PATIENT: ATUL ALBERT LOC: EN U#:[id number] AGE/SX: 67/M ROOM: RE05/31/[address]: Dr. Mohinder Shipman MD : 1955 BED: DIS: 05/31/2022 SPEC #: [id number] RECD: 05/31/22 13:35 STATUS: MAEVE BECKMANNakia #: [id number] GLORIA: 05/31/22 00:[address]: Mohinder Shipman DEPT: SURGICAL PATHOLOGY RECD BY: Brock Boyd Tissues: COLON BIOPSY Procedures: Surgery Specimen Level IV HEADER OPERATION: Colonoscopy (MAC) PRE-OP DIAGNOSIS: Screening TISSUE SUBMITTED: Polyp at anastomosis MICROSCOPIC DIAGNOSIS Polyp at anastomosis, biopsy: Fragments of focal material. See comment. DERICK:jayy 06/01/2022 COMMENT Colonic tissue is not identified in the specimen. Clinical correlation and appropriate follow up are necessary. MICROSCOPIC DESCRIPTION Slides are reviewed. GROSS DESCRIPTION Received in fixative is one container labeled with the patient's name and designated polyp at anastomosis. The specimen consists of multiple brown fragments of soft tissue that in aggregate measure 0.5 x 0.5 x 0.1 cm. The specimen is totally submitted in one cassette. / SJ:jayy 05/31/2022 TC: Cannot code CPT: 21017
[2022-05-31] MEDS: Lactated Ringers 1,000 ML 15 ML IV (10:30)
--- NOTE | 2022-05-31 10:57 | HP.PCM_ITS ---
HPI - General HPI Narrative ATUL ALBERT, is a 67 M who presents for follow-up after a very large tubovillous adenoma was removed last year. He was recommended for repeat because it was removed and partial piecemeal fashion. He denies any abdominal pain or blood in the stool or any issues at this time. [facility] Medical History (Updated 05/27/22 @ 11:35 by Melissa Marcus) Alcohol use Cancer Cardiology follow-up encounter Colon cancer Denies previous medical history Former smoker Heartburn History of atrial fibrillation History of echocardiogram Hypertension Home Medications cholecalciferol (vitamin D3) 125 mcg (5,000 unit) capsule 125 mcg PO DAILY 09/04/20 [History Last Taken Unknown] lactobacillus combination no.8 3 billion cell capsule (Adult Probiotic) 3,000 mmu cells PO DAILY 01/07/21 [History Last Taken Unknown] mecobalamin (vitamin B12) 5,000 mcg lozenge 5,000 mcg PO DAILY 01/07/21 [History Last Taken Unknown] pyridoxine (vitamin B6) 500 mg tablet 500 mg PO DAILY 01/07/21 [History Last Taken Unknown] broccoli flower 500 mg tablet 500 mg PO DAILY 05/10/21 [History Last Taken Unknown] zinc 50 mg tablet 50 mg PO DAILY 05/10/21 [History Last Taken Unknown] famotidine 20 mg tablet (Pepcid AC) 20 mg PO PRN PRN GERD 05/27/22 [History Last Taken Unknown] Allergy/AdvReac Type Severity Reaction Status Date / Time Penicillins Allergy unknown Verified 05/31/22 10:22 Family History Mother Thyroid disorder Sister Cervical cancer Surgical History (Updated 05/27/22 @ 11:35 by Melissa Marcus) History of appendectomy History of partial colectomy Hx of right cataract extraction Social History Smoking Status: Former smoker alcohol intake: current alcohol intake frequency: a few times a month Alcohol type: beer substance use type: does not use what type of physical activity do you participate in: walking Past Medical/Surgical History Planned Operation S.O.S: No Previous Hospitalizations/Surgeries HX Hospitalizations: No HX of Surgeries: LAP R PASCALE COLECTOMY PORT PLACEMENT Any Problems With Anesthesia: No You/Your Family Experience Fever (Hyperthermia) With Anes: No Cholinesterase deficiency: No Cardiovascular Hx Chest Pain within Last 2 months: No Hx of Irregular Heartbeat and/or Afib: Yes (HX OF A-FIB W/ LAST PROCEDURE) Hx Heart Attack: No Hx Congestive Heart Failure: No Hx Rheumatic Fever: No Hx Hypertension: Yes (NO MEDS FOR 6 MONTHS) Hx Internal Defibrillator: No Hx Pacemaker: No Hx Cardiac Catheterization: No Hx Cardiac Surgery/Stents/Etc.: No Hx Stress Test: No Hx Pain in Legs when Walking/Leg Cramps: No Respiratory Chronic Cough: No HX of Shortness of Breath: No Hoarseness: No Hx Chronic Obstructive Pulmonary Disease (COPD): No Hx Asthma: No Hx Emphysema: No Hx Sleep Apnea: No Hx Respiratory Tract Infection/Cold (presently): No Do You Snore Loudly (louder than talking or can be heard): No Do You Often Feel Tired/ Fatigued/ Sleepy Dring Daytime?: No Has Anyone Observed You Stop Breathing During Sleep?: No Result (for STOP score): Negative Hx Smoking: No Smoking Status: Former smoker Gastrointestinal Hx Gastroesophageal Reflux: Yes Controlled With Meds: Yes (MED PRN) Hx Gastrointestinal Disorders: No Hx Gastrointestinal Bleed: No Hx Ulcer: No Hx Hiatal Hernia: No Difficulty Chewing/Swallowing: No Special diet followed at home: No Hx Unplanned Weight Loss of 20#: No HX Unplanned Weight Gain of 20#: No Neurological Hx Seizures: No HX Syncope/Blackout Spells/Unconsciousness: No Hx Transient Ischemic Attacks (TIA): No Hx Multiple Sclerosis: No Hx Parkinson's Disease: No Hx Head/Neck Injury: Yes (concussion) Hx Headaches: No Hx Back Injury/Pain: No Recent Onset of Speech Difficulty: No Restless Legs: No Does patient have nerve stimulator: No Blood Disorder Hx Leukemia: No Bleeding Tendencies: No Hx Deep Vein Thrombosis: No Hx High Cholesterol: No Blood Transmitted Disease: No Hx Hepatitis: No Hx Cirrhosis: No Hx Anemia: No Hx Blood Disorders: No Genitourinary Hx Renal Disease: No Hx Dialysis: No Musculoskeletal Hx Arthritis: No Hx Rheumatoid Arthritis: No Endocrine Hx Diabetes: No Insulin: No Thyroid Disease: No Hx Steroid Therapy: No Psycho/Social Hx Substance Use: No Hx Alcohol Use: Yes (socially) Hx Anxiety: No Hx Depression: No Mental Illness: No Hx Dementia: No Miscellaneous Hx Cancer: Yes Recent Exposure to Contagious Disease: No Hx of C-Diff: No Any Loose Teeth: No Allergies Penicillins Allergy (Verified 05/31/22 10:22) unknown Maternal: Family History Mother Thyroid disorder Sister Cervical cancer Dementia and - Paternal: Family History Mother Thyroid disorder Sister Cervical cancer Dementia From the PAT History Number of Risk Factors: 2 Vital Signs Vital Signs Vital Signs: 05/31/22 10:29 05/31/22 10:29 Temperature 98.6 F Temperature Source Temporal Pulse Rate 68 Respiratory Rate 18 Respiratory Pattern Normal Blood Pressure 132/88 H Blood Pressure Mean 102 Blood Pressure Source Monitor Blood Pressure Position Semi-Fowlers Blood Pressure Location Right Arm Pulse Ox 97 Oxygen Delivery Method Room Air Weight Weight: 165 lb 5.547 oz Body Mass Index (BMI) 28.3 Physical Exam Const alert and oriented x3 Resp normal respiratory effort and normal air movement Cardio regular rate and regular rhythm GI soft to palpation, non-tender and non-distended Assessment & Plan Assessment/Plan (1) History of colon cancer: PLAN: Patient has a history of colon cancer with right hemicolectomy. Last year he had a large tubovillous adenoma. He is here for his 1 year surveillance colonoscopy. I explained endoscopy in detail to the patient. I explained the risks including but not limited to stroke or heart attack with anesthesia, perforation of the GI tract, bleeding, infection. I explained that any of these could necessitate further emergency surgery. The patient understands and all questions were answered sufficiently. The patient wishes to proceed with procedure. Mohinder Shipman MD Pager: [facility] [address] [place] [address], [address] [place] [address] Office: Surgery Risks - Colonoscopy Risks Include but are not Limited To: Risks include but are not limited to: Bleeding, perforation requiring further surgery, inability to complete colonoscopy requiring barium enema.
--- NOTE | 2022-05-31 11:33 | OP.COLON_ITS ---
Patient Name: Iron Combs Procedure Date: 05/31/2022 11:20 AM Date of : 1955 Age: 67 Procedure: Colonoscopy Indications: High risk colon cancer surveillance: Personal history of colon cancer Providers: Mohinder Shipman MD Medicines: Monitored Anesthesia Care Patient Profile: This is a 67 year old male. Refer to note in patient chart for documentation of history and physical. Last Colonoscopy: 1 year ago. Complications: No immediate complications. Procedure: Pre-Anesthesia Assessment: - Prior to the procedure, a History and Physical was performed, and patient medications and allergies were reviewed. The patient's tolerance of previous anesthesia was also reviewed. The risks and benefits of the procedure and the sedation options and risks were discussed with the patient. All questions were answered, and informed consent was obtained. Prior Anticoagulants: The patient has taken no previous anticoagulant or antiplatelet agents. After reviewing the risks and benefits, the patient was deemed in satisfactory condition to undergo the procedure. After I obtained informed consent, the scope was passed under direct vision. Throughout the procedure, the patient's blood pressure, pulse, and oxygen saturations were monitored continuously. The colonoscope was introduced through the anus and advanced to the ileocolonic anastomosis. The colonoscopy was performed without difficulty. The patient tolerated the procedure well. The quality of the bowel preparation was good. Findings: The entire examined colon appeared normal on direct and retroflexion views. A small polyp was found in the anastomosis. The polyp was removed with a hot snare. Resection and retrieval were complete. Impression: - The entire examined colon is normal on direct and retroflexion views. - No specimens collected. Recommendation: - Await pathology results. - Discharge patient to home. - Resume previous diet. - Continue present medications. - Repeat colonoscopy in 1 year for surveillance. Procedure Code(s): --- Professional --- 47312, Colonoscopy, flexible; with removal of tumor(s), polyp(s), or other lesion(s) by snare technique Diagnosis Code(s): --- Professional --- Z85.038, Personal history of other malignant neoplasm of large intestine CPT copyright 2017 [employer]. All rights reserved. The codes documented in this report are preliminary and upon medical biller/coder review may be revised to meet current compliance requirements. Mohinder Shipman MD 05/31/2022 11:32:44 AM This report has been signed electronically. Number of Addenda: 0 Note Initiated On: 05/31/2022 11:20 AM
== END 2022-05-31 12:13 | disposition home or self-care (01) ==
LOC: EN 09:50 → AC 09:52
PROVIDERS: Visit Provider Surgery
PROC: 0DJD8ZZ Inspection of Lower Intestinal Tract, Via Natural or Artificial Opening Endoscopic (ICD-10-PCS; CPT 45378; principal; 2022-05-31 10:55)
DX: Z12.11 Encounter for screening for malignant neoplasm of colon (principal); K63.5 Polyp of colon; Z87.891 Personal history of nicotine dependence; Z85.038 Personal history of other malignant neoplasm of large intestine
CPT/HCPCS: 45385; 88305; J7120; J2405

== ENCOUNTER 2023-06-06 09:12 | Day surgery (SDC) | payer MEDICARE, OTHER, SELFPAY ==
[2023-06-06] VITALS (7 sets, daily range): BP systolic 102–158; BP diastolic 62–91; PULSE 52–76; RESP 16–18; TEMP 36.5–36.6; O2SAT 94–100; BMI 27.8
[2023-06-06] MEDS: Lactated Ringers 1,000 ML 15 ML IV (09:47)
--- NOTE | 2023-06-06 10:18 | HP.PCM_ITS ---
HPI - General HPI Narrative ATUL ALBERT, is a 68 M who presents for surveillance anoscopy. Patient had a right hemicolectomy for colon cancer 3 years ago. This is his third surveillance colonoscopy. He denies any abdominal pain or blood in his stool. [facility] Medical History Alcohol use Cancer Cardiology follow-up encounter Colon cancer Denies previous medical history Former smoker Heartburn History of atrial fibrillation History of echocardiogram Hypertension Home Medications cholecalciferol (vitamin D3) 125 mcg (5,000 unit) capsule 125 mcg PO DAILY 09/04/20 [History Last Taken Unknown] mecobalamin (vitamin B12) 5,000 mcg lozenge 5,000 mcg PO DAILY 01/07/21 [History Last Taken Unknown] pyridoxine (vitamin B6) 500 mg tablet 500 mg PO DAILY 01/07/21 [History Last Taken Unknown] zinc 50 mg tablet 50 mg PO DAILY 05/10/21 [History Last Taken Unknown] famotidine 20 mg tablet (Pepcid AC) 20 mg PO PRN PRN GERD 05/27/22 [History Last Taken Unknown] lactobacillus combination no.8 3 billion cell capsule (Adult Probiotic) 3,000,000 cell PO DAILY 04/28/23 [History Last Taken Unknown] Allergy/AdvReac Type Severity Reaction Status Date / Time Penicillins Allergy unknown Verified 06/06/23 09:45 Family History Mother Thyroid disorder Sister Cervical cancer Surgical History History of appendectomy History of partial colectomy Hx of colonoscopy Hx of right cataract extraction Social History (Updated 04/28/23 @ 11:11 by Corry White) household members: spouse Smoking Status: Former smoker alcohol intake: current alcohol intake frequency: a few times a month Alcohol type: beer substance use type: does not use what type of physical activity do you participate in: walking Past Medical/Surgical History Planned Operation Planned Operative Procedure/s: CSCOPE S.O.S: No Previous Hospitalizations/Surgeries HX Hospitalizations: No HX of Surgeries: LAP R PASCALE COLECTOMY PORT PLACEMENT Any Problems With Anesthesia: No You/Your Family Experience Fever (Hyperthermia) With Anes: No Cholinesterase deficiency: No Cardiovascular Hx Chest Pain within Last 2 months: No Hx of Irregular Heartbeat and/or Afib: Yes (HX OF A-FIB W/ LAST PROCEDURE) Hx Heart Attack: No Hx Congestive Heart Failure: No Hx Rheumatic Fever: No Hx Hypertension: No Hx Internal Defibrillator: No Hx Pacemaker: No Hx Cardiac Catheterization: No Hx Cardiac Surgery/Stents/Etc.: No Hx Stress Test: No Hx Pain in Legs when Walking/Leg Cramps: No Respiratory Chronic Cough: No HX of Shortness of Breath: No Hoarseness: No Hx Chronic Obstructive Pulmonary Disease (COPD): No Hx Asthma: No Hx Emphysema: No Hx Sleep Apnea: No Hx Respiratory Tract Infection/Cold (presently): No Do You Snore Loudly (louder than talking or can be heard): No Do You Often Feel Tired/ Fatigued/ Sleepy Dring Daytime?: No Has Anyone Observed You Stop Breathing During Sleep?: No Result (for STOP score): Negative Hx Smoking: No Smoking Status: Former smoker Gastrointestinal Hx Gastroesophageal Reflux: Yes Controlled With Meds: Yes (MED PRN) Hx Gastrointestinal Disorders: No Hx Gastrointestinal Bleed: No Hx Ulcer: No Hx Hiatal Hernia: No Difficulty Chewing/Swallowing: No Special diet followed at home: No Hx Unplanned Weight Loss of 20#: No HX Unplanned Weight Gain of 20#: No Neurological Hx Seizures: No HX Syncope/Blackout Spells/Unconsciousness: No Hx Transient Ischemic Attacks (TIA): No Hx Multiple Sclerosis: No Hx Parkinson's Disease: No Hx Head/Neck Injury: Yes (concussion) Hx Headaches: No Hx Back Injury/Pain: No Recent Onset of Speech Difficulty: No Restless Legs: No Does patient have nerve stimulator: No Blood Disorder Hx Leukemia: No Bleeding Tendencies: No Hx Deep Vein Thrombosis: No Hx High Cholesterol: No Blood Transmitted Disease: No Hx Hepatitis: No Hx Cirrhosis: No Hx Anemia: No Hx Blood Disorders: No Genitourinary Hx Renal Disease: No Hx Dialysis: No Musculoskeletal Hx Arthritis: No Hx Rheumatoid Arthritis: No Endocrine Hx Diabetes: No Insulin: No Thyroid Disease: No Hx Steroid Therapy: No Psycho/Social Hx Substance Use: No Hx Alcohol Use: Yes (socially) Hx Anxiety: No Hx Depression: No Mental Illness: No Hx Dementia: No Miscellaneous Hx Cancer: Yes Recent Exposure to Contagious Disease: No Hx of C-Diff: No Any Loose Teeth: No Allergies Penicillins Allergy (Verified 06/06/23 09:45) unknown As a child Maternal: Family History Mother Thyroid disorder Sister Cervical cancer Dementia and - Paternal: Family History Mother Thyroid disorder Sister Cervical cancer Dementia Discharge Is Pt Admitted From a Alf, or a Half-Way: No After D/C, Where Do you Plan to Go: Return Home From the PAT History Number of Risk Factors: 2 Vital Signs Vital Signs Vital Signs: 06/06/23 09:50 06/06/23 09:50 Temperature 97.8 F Temperature Source Temporal Pulse Rate 65 Respiratory Rate 16 Respiratory Pattern Normal Blood Pressure 158/91 H Blood Pressure Mean 113 Blood Pressure Source Monitor Blood Pressure Position Semi-Fowlers Blood Pressure Location Left Arm Pulse Ox 100 Oxygen Delivery Method Room Air Weight Weight: 156 lb 15.506 oz Body Mass Index (BMI) 27.8 Physical Exam Const alert and oriented x3 HEENT normocephalic Eyes PERRL Resp normal respiratory effort and normal air movement Cardio regular rate and regular rhythm GI soft to palpation, non-tender and non-distended Extremity normal to inspection Assessment & Plan Assessment/Plan (1) Colon cancer: QUALIFIERS: Colon location: ascending Qualified Code(s): C18.2 - Malignant neoplasm of ascending colon PLAN: Patient has a history of colon cancer and is here for surveillance colonoscopy. I explained endoscopy in detail to the patient. I explained the risks including but not limited to stroke or heart attack with anesthesia, perforation of the GI tract, bleeding, infection. I explained that any of these could necessitate further emergency surgery. The patient understands and all questions were answered sufficiently. The patient wishes to proceed with procedure. Mohinder Shipman MD Pager: [facility] [address] [place] [address], [address] [place] [address] Office: Surgery Risks - Colonoscopy Risks Include but are not Limited To: Risks include but are not limited to: Bleeding, perforation requiring further surgery, inability to complete colonoscopy requiring barium enema.
--- NOTE | 2023-06-06 10:38 | OP.CCLET_ITS ---
06/06/2023 Andrez Re : Colonoscopy procedure for Iron Combs Dear Andrez This procedure was performed on Tuesday, June 06, 2023. My impressions and recommendations are as follows: Impressions : - The entire examined colon is normal on direct and retroflexion views. - No specimens collected. Recommendations : - Discharge patient to home. - Resume previous diet. - Continue present medications. - Repeat colonoscopy in 3 years for surveillance. My findings are described in the full procedure note, which is enclosed. If I can be of further assistance, please feel free to contact me at Doctor phone number(s): , Work: . Sincerely, Mohinder Shipman MD 06/06/2023 10:37:54 AM This report has been signed electronically.
--- NOTE | 2023-06-06 10:38 | OP.COLON_ITS ---
Patient Name: Iron Combs Procedure Date: 06/06/2023 10:22 AM Date of : 1955 Age: 68 Procedure: Colonoscopy Indications: High risk colon cancer surveillance: Personal history of colon cancer Providers: Mohinder Shipman MD Referring MD: Mohinder Shipman MD Medicines: Monitored Anesthesia Care Patient Profile: This is a 68 year old male. Refer to note in patient chart for documentation of history and physical. Last Colonoscopy: 1 year ago. Complications: No immediate complications. Procedure: Pre-Anesthesia Assessment: - Prior to the procedure, a History and Physical was performed, and patient medications and allergies were reviewed. The patient's tolerance of previous anesthesia was also reviewed. The risks and benefits of the procedure and the sedation options and risks were discussed with the patient. All questions were answered, and informed consent was obtained. Prior Anticoagulants: The patient has taken no anticoagulant or antiplatelet agents. After reviewing the risks and benefits, the patient was deemed in satisfactory condition to undergo the procedure. After I obtained informed consent, the scope was passed under direct vision. Throughout the procedure, the patient's blood pressure, pulse, and oxygen saturations were monitored continuously. The Colonoscope was introduced through the anus and advanced to the ileocolonic anastomosis. The colonoscopy was performed without difficulty. The patient tolerated the procedure well. The quality of the bowel preparation was good. The ileocecal valve, appendiceal orifice, and rectum were photographed. Scope In: 10:28:36 AM Scope Withdrawal Time 0 hours 3 minutes 34 seconds Scope Out: 10:34:41 AM Total Procedure Duration Time 0 hours 6 minutes 5 seconds Findings: The entire examined colon appeared normal on direct and retroflexion views. Impression: - The entire examined colon is normal on direct and retroflexion views. - No specimens collected. Recommendation: - Discharge patient to home. - Resume previous diet. - Continue present medications. - Repeat colonoscopy in 3 years for surveillance. Procedure Code(s): --- Professional --- 77838, Colonoscopy, flexible; diagnostic, including collection of specimen(s) by brushing or washing, when performed (separate procedure) Diagnosis Code(s): --- Professional --- Z85.038, Personal history of other malignant neoplasm of large intestine CPT copyright 2021 [employer]. All rights reserved. The codes documented in this report are preliminary and upon hydraulic jack adjuster review may be revised to meet current compliance requirements. Mohinder Shipman MD 06/06/2023 10:37:54 AM This report has been signed electronically. Number of Addenda: 0 Note Initiated On: 06/06/2023 10:22 AM
== END 2023-06-06 11:22 | disposition home or self-care (01) ==
LOC: EN 09:14 → AC 09:15
PROVIDERS: Referring Provider Surgery; Visit Provider Surgery
PROC: 0DJD8ZZ Inspection of Lower Intestinal Tract, Via Natural or Artificial Opening Endoscopic (ICD-10-PCS; CPT 45378; principal; 2023-06-06 10:25)
DX: Z12.11 Encounter for screening for malignant neoplasm of colon (principal); C18.2 Malignant neoplasm of ascending colon; I10 Essential (primary) hypertension; Z87.891 Personal history of nicotine dependence; Z90.49 Acquired absence of other specified parts of digestive tract
CPT/HCPCS: G0105; J7120; J2405